=== PATIENT | male | born 1950 | race Caucasian/White ===

== ENCOUNTER → 2020-06-27 14:31 | Outpatient (BNVA) | payer MEDICARE, SELFPAY | PROVIDERS: Visit Provider Surgery | DX: Z20.822 Contact with and (suspected) exposure to COVID-19 (principal) | CPT/HCPCS: 87635 ==

== ENCOUNTER 2020-06-30 06:17 | Day surgery (SDC) | payer MEDICARE, SELFPAY ==
[2020-06-27 13:35] VITALS: BMI 37.6
[2020-06-30 06:44] VITALS: BP 154/77; PULSE 66; RESP 18; TEMP 36.2; O2SAT 94
[2020-06-30 06:45] LABS: Glucose Point of Care 125 mg/dL (70-110)
[2020-06-30] MEDS: sodium chloride 0.9% 1,000 ML 30 ML IV (06:45)
--- NOTE | 2020-06-30 06:59 | ECG_ITS ---
[facility] Test Date: 2020-06-30 Pat Name: Lang Rangel Department: Room: Gender: Male Director Of Critical Care: : 1950 Requested By: Jeanne Cho Order Number: [id number] Radha MD: Robert Castillo M.D. Measurements Intervals [place] Rate: 63 P: LA: QRS: -79 QRSD: 99 T: 90 QT: 433 QTc: 445 Interpretive Statements ATRIAL FIBRILLATION INDETERMINATE AXIS LEFT ANTERIOR FASCICULAR BLOCK [QRS AXIS <= -45, QR IN I, RS IN II] ANTEROLATERAL MYOCARDIAL INFARCTION [40+ ms Q WAVE IN I/aVL/V3-V6], OF INDETERMINATE AGE No previous ECG available for comparison Electronically Signed On 06-30-2020 16:15:40 CDT by Robert Castillo M.D. [email or web address] [place].[employer][id number]
--- NOTE | 2020-06-30 06:59 | ANES.PREANE2 ---
Pre-Anesthetic Assessment Pre-Anesthetic Assessment: Height/Weight: Height 1.75 m Weight 115.666 kg Temp Pulse Resp BP Pulse Ox 97.2 F L 66 18 154/77 94 06/30/20 06:44 06/30/20 06:44 06/30/20 06:44 06/30/20 06:44 06/30/20 06:44 Preop Diagnosis: Suspicious skin lesion, anemia, history of colon polyps Proposed Procedure: Operation Date: 06/30/20 08:00 Proposed Procedures p Excision of skin lesion on back 11399 02014 25889 D50.9 I98.9(Not Applicable) - Ronnell Fry MD s EGD(Not Applicable) - Ronnell Fry MD s Colonoscopy(Not Applicable) - Ronnell Fry MD Familial anesthetic complications: None Was Beta Isabela taken within 24 hours: N/A Was Clonidine taken within 24 hours: N/A Last intake: > 8hrs Social: Social History: No alcohol and No tobacco Exam: Pre-Anes Outpt Exam: alert, oriented x 3, clear to auscultation bilaterally and regular rate & rhythm Airway: Cervical ROM: WNL MP: 4 Dentition: False Pulmonary: Pulmonary: COPD CV/HEM: CV/HEM: Afib (no warfarin for 2 days), Anemia, CAD (multiple stents (all > 1 year ago)), HTN and [place] Hepatic: Comments: previous heavy drinker, no sequelae of alcohol abuse Metabolic: Metabolic: Hyperlipidemia Anesthetic Plan: ASA status: 4 Anesthesia: MAC Risk of > 500 ml blood loss (7ml/kg in children): No PFSH Anesthesia PFSH: Medical History (Updated 06/23/20 @ 09:33 by Ronnell Fry MD) Anemia Atrial fibrillation CAD (coronary artery disease) Colon polyps COPD (chronic obstructive pulmonary disease) Diabetes mellitus Hyperlipidemia Hypertension Myocardial infarct Surgical History (Updated 06/23/20 @ 09:04 by Ronnell Fry MD) History of appendectomy History of coronary artery stent placement Status post colonoscopy Family History (Updated 06/23/20 @ 08:54 by TENA Romo) Denies family history of Anesthesia complication Bleeding disorder Social History (Updated 06/23/20 @ 08:54 by TENA Romo) Smoking and tobacco status: never smoked Alcohol intake: never Data Anesthesia Other Labs: Laboratory Results - last 48 hr 06/30/20 06:43 POC Glucose 125 H Cardiac Studies: No Data to Display
--- NOTE | 2020-06-30 07:53 | W.PM.OPSUD ---
Surgery/Procedure H&P Update DATE OF PROCEDURE: June 30, 2020 DATE H&P PERFORMED: 06/23/20 H&P UPDATE INFORMATION: I have reviewed H&P completed within last 30 days, I have examined patient prior to procedure and No changes to prior documentation PREOP DIAGNOSIS: Suspicious skin lesion, anemia, history of colon polyps PLANNED PROCEDURE: Operation Date: 06/30/20 08:00 Proposed Procedures p Excision of skin lesion on back 49986 38437 75772 D50.9 I98.9(Not Applicable) - Ronnell Fry MD s EGD(Not Applicable) - Ronnell Fry MD s Colonoscopy(Not Applicable) - Ronnell Fry MD
[2020-06-30 09:04] LABS: INR 1.22 (0.8-1.2)
[2020-06-30 11:15] VITALS: BP 127/54; PULSE 68; RESP 18; TEMP 36.8; O2SAT 97
[2020-06-30 11:20] VITALS: BP 120/67; PULSE 69; RESP 19; O2SAT 94
[2020-06-30 11:25] VITALS: BP 116/71; PULSE 59; RESP 17; TEMP 36.5; O2SAT 95
[2020-06-30 11:31] LABS: Glucose Point of Care 120 mg/dL (70-110)
[2020-06-30 11:38] VITALS: BP 109/73; PULSE 64; RESP 18; TEMP 36.2; O2SAT 94
--- NOTE | 2020-06-30 11:51 | PM.OP ---
Operative Report Date of procedure: June 30, 2020 Pre-op Diagnosis: 1. Anemia 2. History of colon polyps 3. Suspicious skin lesion on the back Post-op Diagnosis: 1. Nonerosive gastritis 2. Diverticulosis 3. 9mm sessile polyp - descending colon 4. 5mm sessile polyp - Rectum 5. 2cm suspicious skin lesion back Procedure Done: 1. Esophagogastroduodenoscopy without biopsy 2. Colonoscopy with polypectomy using hot snare 3. Wide local excision of 2 cm suspicious skin lesion on the back 4. Intermediate closure of defect measuring 6 x 4 cm Specimens removed/disposition: 1. Rectal polyp 2. Descending colon polyp 3. Suspicious skin lesion on the back Surgeon: Ronnell Fry Anesthesia: MAC Condition: stable Disposition: PACU Procedure: The patient was taken to the operating room and placed in left lateral position under MAC after IV antibiotic had been administered. The area around the suspicious lesion on the back was prepped and draped in sterile manner. 1% lidocaine with 0.5% Marcaine was infiltrated on the suspicious skin lesion. A 6 x 4 cm longitudinal elliptical incision was made after 1 cm margin was obtained using 15 blade. The subcutaneous tissues were divided using electrocautery down to the fascia and the specimen was excised completely and sent to pathology in formalin with a short stitch placed superiorly. The defect measured 6 x 4 x 2 cm deep. Subcutaneous flaps were raised bilaterally and the subcutaneous tissue was closed in layers using interrupted 3-0 Vicryl sutures to close the defect. The skin was closed using running subcuticular 4-0 Monocryl suture and surgical glue. Pressure dressings were applied A gastroscope was introduced and advanced up to second portion of the duodenum and slowly withdrawn. Duodenum second portion: Normal Duodenal bulb: Normal Stomach Fundus: Normal body: Mild nonerosive gastritis Antrum: Normal Pylorus: Normal Esophagus GE junction: Normal at 40 cm Rest of esophagus: Normal A colonoscope was introduced and advanced up to the cecum and slowly withdrawn. The colon prep was fair. Cecum: Normal Ascending colon: Normal Transverse colon: Normal Descending colon: 9 mm sessile polyp removed piecemeal with hot snare Sigmoid colon: Mild diverticulosis Rectum:: 5 mm sessile polyp removed with a hot snare AMANDEEP:: Normal
--- NOTE | 2020-06-30 17:42 | ANE.PACU2 ---
Inpatient post-anesthesia follow up: Airway intact: Yes Vital signs: Temperature 97.2 F Pulse Rate 64 Respiratory Rate 18 Blood Pressure 109/73 Pulse Oximetry 94 Oxygen Delivery Me thod Room Air Oxygen Flow Rate Fraction of Inspir ed Oxygen Hydration adequate: Yes Nausea and vomiting: No Pain level: 1 Mental status: Baseline
== END 2020-06-30 12:00 | disposition home or self-care (01) ==
PROVIDERS: Visit Provider Surgery
PROC: (CPT 11602; principal; 2020-06-30 08:00)
PROC: 0DJ08ZZ Inspection of Upper Intestinal Tract, Via Natural or Artificial Opening Endoscopic (ICD-10-PCS; CPT 43235; 2020-06-30 08:00)
PROC: 0DJD8ZZ Inspection of Lower Intestinal Tract, Via Natural or Artificial Opening Endoscopic (ICD-10-PCS; CPT 45378; 2020-06-30 08:00)
DX: D64.9 Anemia, unspecified (principal); Z86.010 Personal history of colon polyps; C44.509 Unspecified malignant neoplasm of skin of other part of trunk; K29.70 Gastritis, unspecified, without bleeding; K57.30 Diverticulosis of large intestine without perforation or abscess without bleeding; D12.4 Benign neoplasm of descending colon; D12.8 Benign neoplasm of rectum; J44.9 Chronic obstructive pulmonary disease, unspecified; I48.91 Unspecified atrial fibrillation; Z79.01 Long term (current) use of anticoagulants; I25.10 Atherosclerotic heart disease of native coronary artery without angina pectoris; Z95.5 Presence of coronary angioplasty implant and graft; I10 Essential (primary) hypertension; I25.2 Old myocardial infarction; E78.5 Hyperlipidemia, unspecified; E11.9 Type 2 diabetes mellitus without complications
CPT/HCPCS: 11602; 12032; 43235; 45385; 36416; 82962; 85610; 88304; 88305; 93005; J0690; J2370; J2704; J3010; J3490; J7030

== ENCOUNTER → 2020-07-28 09:09 | Outpatient (BNVA) | payer MEDICARE, SELFPAY | PROVIDERS: Visit Provider Surgery | DX: D50.9 Iron deficiency anemia, unspecified (principal); Z20.822 Contact with and (suspected) exposure to COVID-19 | CPT/HCPCS: 87635 ==

== ENCOUNTER 2020-07-30 07:09 | Day surgery (SDC) | payer MEDICARE, SELFPAY ==
[2020-07-30] VITALS (8 sets, daily range): BP systolic 129–159; BP diastolic 64–86; PULSE 55–80; RESP 12–22; TEMP 36.1–36.7; O2SAT 91–97; BMI 32.5
[2020-07-30 08:02] LABS: Glucose Point of Care 133 mg/dL (70-110)
--- NOTE | 2020-07-30 08:10 | NM_ITS ---
WS: [id number] NUCLEAR MEDICINE SENTINEL LYMPH NODE IMAGING HISTORY: mass left upper torso, resection of melanoma mid back. COMPARISON: None available. TECHNIQUE: The patient was injected with 1.1 mCi of Technetium 99 ultra filtered sulfur colloid. Inje ction is intradermal surrounding the biopsy site along the mid back. Four aliquots are used. Skin is cleansed with ChloraPrep. Small amount of lidocaine is inserted in 4 aliquots around the scar site from the prior resection site. 4 aliquots of the radionuclide are injected intradermal. No comp lications. Patient is imaged immediately after injection. Approximately one half hours post injection the sentin el lymph node is identified in the RIGHT axilla. Using a source the lymph node is localized in the an terior and lateral projections. NC/NM lymphatics/lymph node [id number] IMPRESSION: Uncomplicated localization of a RIGHT axillary sentinel lymph node after inject ion around the resection site of the posterior back.
--- NOTE | 2020-07-30 08:38 | PC.NURSE ---
patient was injected around mass at [address] Burnett
--- NOTE | 2020-07-30 09:27 | P.HP_ITS ---
Same Day Surgery H&P Indication for Procedure/HPI DATE OF PROCEDURE: July 30, 2020 CHIEF COMPLAINT/INDICATIONFOR SURGICAL PROCEDURE: T3 melanoma requiring reexcision of margins and sentinel lymph node biopsy. Had extensive discussion with the patient about the indication, risks and benefits of surgery PREOP DIAGNOSIS: Melanoma PLANNED PROCEDRUE: Operation Date: 07/30/20 12:15 Proposed Procedures p Re excision of margins [id number] 60508 c43.9(Not Applicable) - Ronnell Fry MD s Sentinal Lymph Node Biopsy(Not Applicable) - Ronnell Fry MD Medications/Allergies* Home Medications Medication Instructions Recorded Confirmed Type albuterol sulfate 2 mg/5 mL oral 2 mg PO TID 06/23/20 07/30/20 History syrup aspirin 81 mg tablet,delayed 81 mg PO DAILY 06/23/20 07/30/20 History release atorvastatin 40 mg tablet 40 mg PO DAILY 06/23/20 07/30/20 History buspirone 5 mg tablet 5 mg PO BID 06/23/20 07/30/20 History carvedilol 12.5 mg tablet 12.5 mg PO BID 06/23/20 07/30/20 History furosemide 40 mg tablet 40 mg PO DAILY 06/23/20 07/30/20 History glipizide 10 mg tablet 10 mg PO DAILY 06/23/20 07/30/20 History insulin glargine U-300 conc 300 45 unit SUBCUT DAILY ml 06/23/20 07/30/20 History unit/mL (3 mL) subcutaneous pen lisinopril 10 mg tablet 10 mg PO DAILY 06/23/20 07/30/20 History metformin 500 mg tablet 500 mg PO DAILY 06/23/20 07/30/20 History mupirocin 2 % topical ointment 1 applic TOPICAL BID 06/23/20 07/30/20 History nitroglycerin 0.4 mg sublingual 0.4 mg SUBLINGUAL Q5M PRN 06/23/20 07/30/20 History tablet spironolactone 50 mg tablet 50 mg PO DAILY 06/23/20 07/30/20 History warfarin 5 mg tablet 5 mg PO DAILY 06/23/20 07/30/20 History Allergies/Adverse Reactions Allergy/AdvReac Type Severity Reaction Status Date / Time No Known Allergies Allergy Verified 07/30/20 07:44 Pertinent History/Comorbid Conditions* Medical History (Updated 07/16/20 @ 16:52 by Ronnell Fry MD) Anemia Atrial fibrillation CAD (coronary artery disease) Colon polyps COPD (chronic obstructive pulmonary disease) Diabetes mellitus Hyperlipidemia Hypertension Myocardial infarct Nodular melanoma Surgical History (Updated 06/30/20 @ 11:15 by Ronnell Fry MD) H/O esophagogastroduodenoscopy (06/30/20) Gastritis H/O local excision of skin lesion (06/30/20) Back History of appendectomy History of coronary artery stent placement Status post colonoscopy (06/30/20) Diverticulosis, colon polyp Family History (Updated 06/23/20 @ 08:54 by TENA Romo) Denies family history of Anesthesia complication Bleeding disorder Social History Smoking and tobacco status: never smoked Alcohol intake: never Pertinent Exam Findings alert, oriented x 3, regular rate & rhythm and operative site marked Recommendations Surgery/Procedure today Coding Level of Care Code Acute Director Of Reservations for Skye Pineda
[2020-07-30] MEDS: sodium chloride 0.9% 1,000 ML 30 ML IV (09:30)
--- NOTE | 2020-07-30 10:33 | SUR.PHASEI ---
patient returned from [place] [facility].
--- NOTE | 2020-07-30 11:10 | ANES.PREANE2 ---
Pre-Anesthetic Assessment Pre-Anesthetic Assessment: Height/Weight: Height 1.75 m Weight 99.79 kg Temp Pulse Resp BP Pulse Ox 97.3 F L 62 16 134/80 96 07/30/20 07:46 07/30/20 07:46 07/30/20 07:46 07/30/20 07:46 07/30/20 07:46 Preop Diagnosis: Melanoma Proposed Procedure: Operation Date: 07/30/20 12:15 Proposed Procedures p Re excision of margins [id number] 04892 02730 c43.9(Not Applicable) - Ronnell Fry MD s Sentinal Lymph Node Biopsy(Not Applicable) - Ronnell Fry MD Familial anesthetic complications: NOne Was Beta Isabela taken within 24 hours: N/A Was Clonidine taken within 24 hours: N/A Last intake: Intake Last Liquid Date 07/29/20 Last Liquid Time 23:00 Last Solid Date 07/29/20 Last Solid Time 23:00 Social: Social History: No alcohol and No tobacco Exam: Pre-Anes Outpt Exam: alert, oriented x 3, clear to auscultation bilaterally and regular rate & rhythm Airway: Cervical ROM: WNL MP: 4 Dentition: False Pulmonary: Pulmonary: COPD CV/HEM: CV/HEM: Afib, Anemia, CAD (stents > 1 year ago), HTN and [place] Metabolic: Metabolic: Hyperlipidemia Anesthetic Plan: ASA status: 3 Anesthesia: General Risk of > 500 ml blood loss (7ml/kg in children): No PFSH Anesthesia PFSH: Medical History Anemia Atrial fibrillation CAD (coronary artery disease) Colon polyps COPD (chronic obstructive pulmonary disease) Diabetes mellitus Hyperlipidemia Hypertension Myocardial infarct Nodular melanoma Surgical History H/O esophagogastroduodenoscopy (06/30/20) Gastritis H/O local excision of skin lesion (06/30/20) Back History of appendectomy History of coronary artery stent placement Status post colonoscopy (06/30/20) Diverticulosis, colon polyp Family History Denies family history of Anesthesia complication Bleeding disorder Social History Smoking and tobacco status: never smoked Alcohol intake: never Data Anesthesia Other Labs: Laboratory Results - last 48 hr 07/30/20 07:58 POC Glucose 133 H Cardiac Studies: No Data to Display
[2020-07-30] MEDS: isosulfan blue 10 mg/mL SDV 5mL SUBCUT (13:40)
[2020-07-30] MEDS: neomycin-poly-bacitracin oint 28 gm 1 APPLIC TOPICAL (13:52)
--- NOTE | 2020-07-30 15:48 | ANE.PACU2 ---
Inpatient post-anesthesia follow up: Airway intact: Yes Vital signs: Temperature 97.0 F Pulse Rate 77 Respiratory Rate 16 Blood Pressure 144/72 Pulse Oximetry 97 Oxygen Delivery Me thod Nasal Cannula Oxygen Flow Rate 2 Fraction of Inspir ed Oxygen Hydration adequate: Yes Nausea and vomiting: No Pain level: 2 Mental status: Baseline
[2020-07-30] MEDS: HYDROcodone-acetaminophen 5-325 mg Tablet 1 TAB PO (16:25)
--- NOTE | 2020-07-30 16:57 | PM.OP ---
Operative Report Date of procedure: July 30, 2020 Pre-op Diagnosis: T3 melanoma on the back status post excision Post-op diagnosis: same Procedure Done: Reexcision of margins on the back for T3 melanoma Intermediate closure of wound measuring 10 x 4 x 3 cm Injection of 3 cc of Lymphazurin Right axillary sentinel lymph node biopsy Specimens removed/disposition: Reexcision of margins on back, short stitch superior, long stitch left Right axillary sentinel lymph node Surgeon: Ronnell Fry Anesthesia: General Estimated blood loss (mL): 50 Condition: stable Disposition: PACU Procedure: The patient was taken to the operating room and intubated under general anesthesia and placed in left lateral position under MAC after IV antibiotic had been administered. The back and the right axilla which had been previously marked by the radiologist was prepped and draped in a sterile manner. A 1.5 cm cm margin was marked on the either edge of the previous surgical incision since patient already had 7 mm negative margins on prior specimen. An elliptical 10 cm long incision was made incorporating the prior scar using a 15 blade, subcutaneous tissues divided down to the fascia using electrocautery and the specimen was sent to pathology in formalin. A short stitch was placed superiorly and a long stitch was placed on the left margin.
--- NOTE | 2020-09-16 07:37 | PM.OP ---
Operative Report Date of procedure: 07/30/2020 Pre-op Diagnosis: T3 melanoma on the back status post excision Post-op diagnosis: same Procedure Done: Reexcision of margins on the back for T3 melanoma Intermediate closure of wound measuring 10 x 4 x 3 cm Injection of 3 cc of Lymphazurin Right axillary sentinel lymph node biopsy Specimens removed/disposition: Reexcision of margins on the back, short superior, long stitch left Right axillary lymph node Surgeon: Ronnell Fry Anesthesia: General Estimated blood loss (mL): 50 Condition: stable Disposition: PACU Procedure: The patient was taken to the operating room and intubated under general anesthesia and placed in left lateral position under MAC after IV antibiotic had been administered. The back and the right axilla which had been previously marked by the radiologist was prepped and draped in a sterile manner. A 1.5 cm margin was marked on the either edge of the previous surgical incision since patient already had 7 mm negative margins on prior specimen. An elliptical transverse 10 cm long incision was made incorporating the prior scar using a 15 blade, subcutaneous tissues divided down to the fascia using electrocautery and the specimen was dissected off the underlying muscular fascia. A short stitch was placed superiorly and a long stitch was placed on the left margin. The wound measured 10 x 4 x 3 cm. Using electrocautery, superior and inferior subcutaneous flaps were created, hemostasis ensured and the subcutaneous tissue was approximated using interrupted 3-0 Vicryl sutures in layers. The skin was closed using jes. A technetium sulfur colloid had been injected previously by the radiologist in the area around the prior surgical site. 5 mL of 1% Lymphazurin was injected in the area around the site of the melanoma and it was massaged for 5 minutes and a 2 cm incision was made in the right axilla at the edge of the hairline. The subcutaneous tissue and clavipectoral fascia was divided with electrocautery and gentle dissection revealed lymphatics with stained lymph nodes. Using electrocautery the lymph nodes were dissected free. The excised lymph nodes were radioactive, examination of the axilla with the gamma probe did not reveal any other lymph nodes. The clavipectoral and subcutaneous tissue was approximated using running 3-0 Vicryl suture and skin was closed using running subcuticular 4-0 Monocryl suture and Dermabond. The patient was extubated and transferred to recovery room in stable condition
== END 2020-07-30 16:35 | disposition home or self-care (01) ==
PROVIDERS: Visit Provider Surgery
PROC: (CPT 11606; principal; 2020-07-30 12:05)
PROC: (CPT 11606; 2020-07-30 12:05)
DX: C43.59 Malignant melanoma of other part of trunk (principal); J44.9 Chronic obstructive pulmonary disease, unspecified; I48.91 Unspecified atrial fibrillation; I25.10 Atherosclerotic heart disease of native coronary artery without angina pectoris; Z95.5 Presence of coronary angioplasty implant and graft; I10 Essential (primary) hypertension; I25.2 Old myocardial infarction; E78.5 Hyperlipidemia, unspecified; Z79.82 Long term (current) use of aspirin; Z79.84 Long term (current) use of oral hypoglycemic drugs; Z79.01 Long term (current) use of anticoagulants
CPT/HCPCS: 11606; 12037; 38500; 36416; 78195; 82962; 88304; 88305; A9541; J0690; J1100; J2250; J2405; J2704; J2710; J3010; J3490; J7030; Q9968

== ENCOUNTER 2020-09-11 09:48 | Outpatient (CLI) | payer MEDICARE, SELFPAY ==
--- NOTE | 2020-09-11 15:18 | ONC CON_ITS ---
Dr. Randall New Patient Note Patient: Lang Rangel Unit #: [id number]: 1950 Dicatated By: Peggy Randall M.D.Date of Visit: Sep 11, 2020 Onc MED New Patient/Consult Referring Physician: Dr. FARZANEH KOHLER M.D. History of Present Illness: Mr. Lang Rangel is a 70-year-old gentleman with a history of mid back skin lesion, as per patient skin lesion was removed many years ago but it recurred and this time evaluated by Dr. Kohler and underwent excision on June 30, 2020 and final pathology report showed 4.6 mm, malignant melanoma, superficial spreading type, invasive into deep reticular dermis, Vignesh level IV, with extensive surface ulceration, margins were inadequate around 6 to 7 mm therefore reexcision and sentinel lymph node biopsy was done on July 30, 2020 and final pathology report came back no residual melanoma identified e.g. clear margins and right axillary sentinel lymph node showed no evidence of malignancy. T4b, N0 M0 stage IIc. Patient tolerated procedure well. Past medical history significant for atrial fibrillation,, coronary artery disease, colon polyps, COPD, diabetes mellitus, hyperlipidemia, hypertension, history of anemia., EGD done on June 30, 2020 shows mild gastritis, colonoscopy done on June 30, 2020 showed diverticulosis, colon polyps. No history of smoking or alcohol use Patient denies any weight loss patient denies any night sweats denies any weight loss or fever chills, denies any new bony pains denies any headaches blurred vision or double vision. Past Medical History: Mr. Rangel's medical history consists of anemia, atrial fibrillation, chronic obstructive pulmonary disease, coronary artery disease, hyperlipidemia, hypertension, myocardial infarction, and type II diabetes. Past Surgical History: Mr. Rangel's surgical/procedural history consists of appendectomy, coronary artery stent placement, and excision of skin lesion on back in 2020. Medications: Aldactone 1 Tablet (of 50 mg) Oral daily, Aspirin 81 1 Tablet (of 81 mg) Tablet, chewable Oral daily, Atorvastatin Calcium 1 Tablet (of 40 mg) Oral daily, busPIRone HCl 1 Tablet (of 5 mg) Oral daily, Carvedilol 1 Tablet (of 12.5 mg) Oral b.i.d., Coumadin 1 Tablet (of 5 mg) Oral daily, Furosemide 1 Tablet (of 40 mg) Oral daily, Gabapentin 1 Capsule (of 300 mg) Oral b.i.d., glipiZIDE 1 Tablet (of 10 mg) Oral b.i.d., Lisinopril 1 Tablet (of 10 mg) Oral daily, metFORMIN HCl 2 Tablet (of 500 mg) Oral b.i.d., Vistaril 1 Tablet (of 25 mg) Capsule Oral daily Allergies: No Known Allergies. Social History: Mr. Rangel is . Mr. Rangel has never smoked. He has no history of drinking. Family History: Mr. Rangel's mother at age 93: myocardial infarction. Mr. Rangel's father at age 77: myocardial infarction. Mr. Rangel has 5 brothers: 5 . Mr. Rangel's first brother's myocardial infarction. Another brother's myocardial infarction. Another brother's myocardial infarction. Another brother's myocardial infarction. Another brother's myocardial infarction. He has 1 sister who is : cancer. Review Of Symptoms: Review of Systems is not available for this patient. Vital Signs: Performed on Sep 11, 2020 11:20: 0, 37.98 (HIGH), 2.30 sq.m, 69 in, 94 % (LOW), 57 /min (LOW), 18 /min, 116/59 mm(hg), 97.1 F (LOW), and 257.2 lbs (HIGH). Performance Status: 0 - Fully active, able to carry on all predisease activities without restrictions. (ECOG) Physical Examination: ENMT - No mouth sores, no thrush, no jaundice, And right axilla well-healed surgical scar from right axillary sentinel lymph node biopsy,, Respiratory - Lungs are clear to auscultation, Cardiovascular - Regular rate and rhythm of heart , Abdomen - Soft, bowel sounds present, Extremities - No visible edema. Lab/Imaging: Most recent lab results are not available for this patient. Impression: T4BN0, M0 stage IIc melanoma involving mid back underwent excision on June 30, 2020, subsequently reexcision and right axillary sentinel lymph node biopsy on July 30, 2020 which showed 4.6 mm, with extensive surface ulceration melanoma involving mid back. Diabetes A. fib Coronary artery disease/MT Hypertension/hyperlipidemia Colon polyps per colonoscopy done on June 30, 2020 COPD Plan: Discussed with patient regarding his disease status and pathology which confirmed malignant melanoma, superficial spreading type, with ulceration, 4.6 mm depth, involving mid back and right axillary sentinel lymph node showed no evidence of metastatic disease thus T4b, N0, stage IIc, as per NCCN guidelines observation or enrollment to clinical trials is suggested,, discussed with patient and his son in detail and patient is agreed to go to melanoma clinic at [place] for evaluation for clinical trial if available. At this point, we will refer him to paranormal clinic at [place] in [place] for evaluation for second opinion and evaluation for clinical trial if available and then patient return to clinic 1 week after his visit to [place] for further discussion. Signed By: Peggy Randall M.D. <<Signature on File>>
== END 2020-09-11 09:49 | disposition home or self-care (01) ==
LOC: ONCMED 09:55
PROVIDERS: PCP Physician Assistant Medical; Visit Provider Internal Medicine Hematology & Oncology
DX: C43.59 Malignant melanoma of other part of trunk (principal); C77.3 Secondary and unspecified malignant neoplasm of axilla and upper limb lymph nodes; E11.59 Type 2 diabetes mellitus with other circulatory complications; I25.10 Atherosclerotic heart disease of native coronary artery without angina pectoris; I25.2 Old myocardial infarction; I48.91 Unspecified atrial fibrillation; I10 Essential (primary) hypertension; E78.5 Hyperlipidemia, unspecified; J44.9 Chronic obstructive pulmonary disease, unspecified; Z86.010 Personal history of colon polyps; Z79.899 Other long term (current) drug therapy
CPT/HCPCS: 99204

== ENCOUNTER 2022-07-19 11:53 | Outpatient (CLI) | payer MEDICARE, SELFPAY ==
--- NOTE | 2022-07-19 12:03 | USCV_ITS ---
Lang Rangel Age: 72 Gender: M : 1950 Exam Date: 07/19/2022 12:09 Ordering Phys: Ang Joy Technologist: Patrice Blue [place] [facility] [place]: chronic congestive heart failure BP: / HR: 119 Rhythm: Sinus Technical Quality: Poor MEASUREMENTS (Male / Female) Normal Values 2D ECHO LV Diastolic Diameter PLAX 3.7 cm 4.2 - 5.9 / 3.9 - 5.3 cm LV Systolic Diameter PLAX 2.7 cm IVS Diastolic Thickness 1.3 cm 0.6 - 1.0 / 0.6 - 0.9 cm IVS Systolic Thickness 1.6 cm LVPW Diastolic Thickness 1.4 cm 0.6 - 1.0 / 0.6 - 0.9 cm LVPW Systolic Thickness 1.4 cm LVOT Diameter 2.0 cm LV Ejection Fraction 2D Teich 52.3 % LV Ejection Fraction MOD 2C 63.2 % LV Ejection Fraction 2C AL 63.7 % LA Diameter 5.0 cm M-MODE Aortic Annulus Diameter 3.2 cm LA Ao Ratio MM 1.6 MV E Point Septal Separation 1.4 cm DOPPLER AV Peak Velocity 172.0 cm/s TR Peak Velocity 231.3 cm/s TR Peak Gradient 21.4 mmHg TV Peak E Velocity 92.0 cm/s Right Atrial Pressure 3.0 mmHg Pulmonary Artery Systolic Pressu 24.4 mmHg RV Acceleration Time 0.2 s FINDINGS Left Ventricle The examination is technically very poor for interpretation. Echo contrast was utilized in the form of opisond, which did not provide much benefit. The ventricle is probably normal in size and function. In one view there may be a slight amount of hypokinesis in the inferior posterior wall however this is not corroborated by other views. The overall ejection fraction is likely within normal range. Diastolic function could not be determined. Right Ventricle Normal right ventricular size and systolic function. Normal right ventricular systolic pressure. Right Atrium Right atrium not well visualized. Left Atrium Left atrium not well visualized. Mitral Valve Mitral valve not well visualized. There is mitral regurgitation to at least a moderate degree. In some views it appears severe. Aortic Valve Aortic valve not well visualized. No obvious aortic stenosis. There is trace aortic insufficiency. Tricuspid Valve Tricuspid valve not well visualized. Pulmonic Valve Pulmonic valve not well visualized. Pericardium Normal pericardium without effusion. Aorta Normal ascending aorta dimension. IVC Inferior vena cava not visualized. CONCLUSIONS The examination is technically very poor for interpretation. Echo contrast was utilized in the form of opisond, which did not provide much benefit. The ventricle is probably normal in size and function. In one view there may be a slight amount of hypokinesis in the inferior posterior wall however this is not corroborated by other views. The overall ejection fraction is likely within normal range. Diastolic function could not be determined. Mitral valve not well visualized. There is mitral regurgitation to at least a moderate degree. In some views it appears severe. Aortic valve not well visualized. No obvious aortic stenosis. There is trace aortic insufficiency. There are no prior echocardiogram studies to compare. Dr. Joe Escobar MD (Electronically Signed) Final Date: 20 July 2022 07:51 S
[2022-07-19] MEDS: perflutren protein-a microsphr 0.22 mg/mL SDV 3 mL IV (12:59)
== END 2022-07-19 11:54 | disposition home or self-care (01) ==
LOC: RAD 11:58
PROVIDERS: PCP Family Medicine; Visit Provider Family Medicine
DX: I50.9 Heart failure, unspecified (principal); I25.118 Atherosclerotic heart disease of native coronary artery with other forms of angina pectoris; R06.09 Other forms of dyspnea; I48.91 Unspecified atrial fibrillation; I34.0 Nonrheumatic mitral (valve) insufficiency
CPT/HCPCS: C8929; Q9956

== ENCOUNTER → 2022-08-09 16:31 | Outpatient (BNVA) | payer MEDICARE, SELFPAY | PROVIDERS: PCP Family Medicine; Visit Provider Internal Medicine Cardiovascular Disease | DX: E11.9 Type 2 diabetes mellitus without complications (principal); N18.9 Chronic kidney disease, unspecified; Z79.01 Long term (current) use of anticoagulants; R06.02 Shortness of breath; I25.10 Atherosclerotic heart disease of native coronary artery without angina pectoris; M79.605 Pain in left leg; M79.604 Pain in right leg; M79.89 Other specified soft tissue disorders; I10 Essential (primary) hypertension; I48.91 Unspecified atrial fibrillation | CPT/HCPCS: 36415; 80048; 83880; 84443; 85025; 93005; 99205 ==

== ENCOUNTER 2022-08-24 14:19 | Outpatient (CLI) | payer MEDICARE, SELFPAY ==
--- NOTE | 2022-08-24 14:30 | USCV_ITS ---
Lang Rangel Age: 72 Gender: M : 1950 Exam Date: 08/24/2022 14:36 Ordering Phys: Santos Rosenbaum MD ([email or web address]) Technologist: CT [place] [facility] [place]: claudication Risk Factors: Previous Vascular Surgery: RIGHT LEFT BP: 80.00 / 47.00 BP: 78.00/ 45.00 Waveform Velocity (cm/s) Velocity (cm/s) Waveform Triphasic 98.5 Iliac Prox 107.0 Triphasic Triphasic 82.4 Iliac Mid 90.5 Triphasic Triphasic 76.1 Iliac Distal 92.6 Triphasic Triphasic 105.7 MORTGAGE CLOSING CLERK 104.0 Triphasic Triphasic 93.1 SFA Prox 95.7 Triphasic Triphasic 86.0 SFA Mid 96.1 Triphasic Triphasic 77.9 SFA Dist 96.1 Triphasic Triphasic 62.7 POP 73.0 Triphasic Monophasic 23.3 DIAGNOSTIC TECHNOLOGIST 0.0 N/A Monophasic 25.0 DPA 36.8 Monophasic 0.7 SRAVANI 0.6 FINDINGS Resting SRAVANI 0.7 on the right side and 0.6 on the left side. Monophasic and low velocity Doppler waveforms in the infrapopliteal vessels on the right side No Doppler flow signals in the left posterior tibial artery Monophasic waveform in the dorsalis pedis artery on the left side CONCLUSIONS 1. Abnormal resting ABIs bilaterally suggesting moderate peripheral artery disease, mostly involving the infrapopliteal vessels. 2. Features of total occlusion of the posterior artery on the left side No similar previous studies are available for comparison Dr Santos Rosenbaum MD [facility] (Electronically Signed) Final Date: 25 August 2022 20:39 S
== END 2022-08-24 14:20 | disposition home or self-care (01) ==
PROVIDERS: PCP Family Medicine; Visit Provider Internal Medicine Cardiovascular Disease
DX: I73.9 Peripheral vascular disease, unspecified (principal); R93.6 Abnormal findings on diagnostic imaging of limbs
CPT/HCPCS: 93925

== ENCOUNTER → 2022-09-08 11:07 | Outpatient (BNVA) | payer MEDICARE, SELFPAY | PROVIDERS: PCP Family Medicine; Visit Provider Internal Medicine Cardiovascular Disease | DX: I77.9 Disorder of arteries and arterioles, unspecified (principal); I10 Essential (primary) hypertension; I48.91 Unspecified atrial fibrillation; E11.9 Type 2 diabetes mellitus without complications; I25.10 Atherosclerotic heart disease of native coronary artery without angina pectoris; R06.02 Shortness of breath; M79.89 Other specified soft tissue disorders; Z79.4 Long term (current) use of insulin | CPT/HCPCS: 80048; 83880; 99214 ==

== ENCOUNTER → 2022-09-15 12:35 | Outpatient (BNVA) | payer MEDICARE, SELFPAY | PROVIDERS: PCP Family Medicine; Visit Provider Internal Medicine Cardiovascular Disease | DX: I77.9 Disorder of arteries and arterioles, unspecified (principal); I10 Essential (primary) hypertension; I48.91 Unspecified atrial fibrillation; E11.9 Type 2 diabetes mellitus without complications; M79.89 Other specified soft tissue disorders; M79.605 Pain in left leg; R06.02 Shortness of breath; I25.10 Atherosclerotic heart disease of native coronary artery without angina pectoris; Z79.01 Long term (current) use of anticoagulants; D64.9 Anemia, unspecified; Z79.84 Long term (current) use of oral hypoglycemic drugs | CPT/HCPCS: 99215 ==

== ENCOUNTER 2022-10-07 06:41 | Outpatient (CLI) | payer MEDICARE, SELFPAY ==
[2022-10-07 06:46] VITALS: BMI 36.7
--- NOTE | 2022-10-07 06:48 | ECG_ITS ---
[facility] Test Date: 2022-10-07 Pat Name: Lang Rangel Department: Room: Gender: Male College Service Officer: : 1950 Requested By: Santos Rosenbaum Order Number: [id number] Radha MD: Santos Rosenbaum M.D. Interpretive Statements NAME OF STUDY: LEXISCAN SESTAMIBI STRESS TEST INDICATION: ASHD; SOB PROCEDURE: At the baseline, the EKG revealed atrial fibrillation with a slow ventricular response rate of 49 bpm. Features of old anteroseptal wall myocardial infarction. Nonspecific T wave changes. The baseline heart was 49 bpm with a blood pressue of 92/54 mm of Hg Lexiscan was infused over a period of 20 seconds. A total of 0.4 milligrams of Lexiscan was infused. The stress phase was continued for a total of 5 minutes. Heart rate at the end of the stress phase was 46 bpm with a blood pressure 81/44 mm of Hg. The EKG at the peak infusion revealed no significant changes. Sestamibi was injected 20 seconds after the Lexiscan infusion. Heart rate at the end of the recovery phase was 50 bpm with a blood pressure of 111/43 mm of Hg. CONCLUSION: 1. No significant EKG changes with the LexiScan infusion 2. No LexiScan induced chest pain or cardiac arrhythmia 3. Normal blood pressure and heart rate response 4. Sestamibi/sestamibi perfusion scan pending; see separate report. Electronically Signed On 10-12-2022 9:35:09 CDT by Santos Rosenbaum M.D. [id number]
--- NOTE | 2022-10-07 06:49 | NMCV_ITS ---
NM kenya perf SPECT r/s* [id number] Lang Rangel Age: 72 Gender: M : 1950 Exam Date: 10/07/2022 07:52 Ordering Phys: Santos Rosenbaum MD ([email or web address]) Technologist: IRA Adams Exam Location: [facility] Indications: CORONARY ANGIOPLASTY STATUS STRESS TEST Please [facility] for [facility] IMAGE PROTOCOL Rest/Stress 1 Lexiscan Day Radiopharmaceutical Dose (mCi) Administration Site Administered by Rest: Tc-99m 10.9 IV IRA Fonseca Sestamibi Stress:Tc-99m 32.8 IV IRA Adams Sestamisaba Rest: 07-Oct-2022 60 Discovery 630 Stress: 07-Oct-2022 30 Discovery 630 0.4mg Lexiscan. Supine position only as patient was unable to lay prone. SPECT RESULTS Technical Quality: Excellent Raw Data Analysis: Normal Image Corrections: No attenuation or motion correction applied Summed Stress Score: 34 Summed Rest Score: 34 Summed Difference Score: 1 PERFUSION FINDINGS A large area of moderate to severely decreased tracer uptake, involving the inferior, inferolateral, anterior, anterolateral and all the apical segments. Subtle areas of reversibility was noted in the inferior region. Increased tracer uptake was noted in the right ventricular free wall FUNCTIONAL RESULTS (calculated via Gated SPECT) Stress Image LV EF (%): 58 Stress EDV (mL):208 TID: 1.14 Stress ESV (mL):87 FUNCTIONAL FINDINGS: Segmental wall motion analysis revealed mild diffuse hypokinesia of the LV apex IMPRESSIONS 1. Myocardial perfusion imaging revealing a large area of moderate to severely decreased persistent tracer uptake involving the inferior, inferolateral, anterolateral, anterior and apical regions with subtle areas of reversibility suggesting extensive myocardial scarring involving the distribution of all the 3 coronary arteries with very small areas of jennifer-infarction ischemia. 2. Normal LV ejection fraction of 58%. 3. Wall motion abnormalities as mentioned above 4. Mildly dilated LV cavity with end-systolic volume of 87 ml. 5. Features of right ventricular hypertrophy No similar previous studies are available for comparison Dr Santos Rosenbaum MD FAC (Electronically Signed) Final Date: 12 October 2022 08:28 S
[2022-10-07] MEDS: regadenoson 0.4 Mg/5 ml Syringe IVP (08:52)
[2022-10-07 09:18] VITALS: BP 111/43; PULSE 55
== END 2022-10-07 06:42 | disposition home or self-care (01) ==
PROVIDERS: PCP Family Medicine; Visit Provider Internal Medicine Cardiovascular Disease
DX: I25.10 Atherosclerotic heart disease of native coronary artery without angina pectoris (principal); R06.02 Shortness of breath
CPT/HCPCS: 36415; 78452; 93017; 96374; A9500; J2785

== ENCOUNTER → 2022-11-11 12:55 | Outpatient (BNVA) | payer MEDICARE, SELFPAY | PROVIDERS: PCP Family Medicine; Visit Provider Internal Medicine Cardiovascular Disease | DX: R94.39 Abnormal result of other cardiovascular function study (principal); I77.9 Disorder of arteries and arterioles, unspecified; I10 Essential (primary) hypertension; I48.91 Unspecified atrial fibrillation; M79.89 Other specified soft tissue disorders; R06.02 Shortness of breath; M79.605 Pain in left leg; I25.10 Atherosclerotic heart disease of native coronary artery without angina pectoris; I25.2 Old myocardial infarction; Z79.01 Long term (current) use of anticoagulants; D64.9 Anemia, unspecified | CPT/HCPCS: 99215 ==

== ENCOUNTER → 2022-11-18 08:23 | Outpatient (BNVA) | payer MEDICARE, SELFPAY | PROVIDERS: PCP Family Medicine; Visit Provider Internal Medicine Cardiovascular Disease | DX: R94.39 Abnormal result of other cardiovascular function study (principal); Z79.01 Long term (current) use of anticoagulants | CPT/HCPCS: 80048; 85025; 85610 ==

== ENCOUNTER 2022-12-22 07:21 | Outpatient (CLI) | payer MEDICARE, SELFPAY ==
[2022-12-22] VITALS (16 sets, daily range): BP systolic 95–122; BP diastolic 41–69; PULSE 41–72; RESP 12–18; TEMP 36.6; O2SAT 90–96; BMI 37.3
--- NOTE | 2022-12-22 07:30 | XACV_ITS ---
Exam Room: 2 Ht: 175 cm Wt: 115 kg BSA: 2.41 m2 Gender: Male : 1950 Any Known Allergies: No known allergies Exam Priority: Routine Procedure(s): Procedure Description: Diagnostic procedure Procedure Description: Left Heart Catheterization Procedure Description: Left ventriculography Procedure Description: Coronary Angiography Luz CHAPMAN; Diagnostic Cath Status: Elective Diagnostic Findings * Patient has multiple previously placed stents in all 3 vessels. There has also been prior myocardial infarctions and known left ventricular dysfunction. * Coronary angiography reveals a right dominant system. The left main coronary artery is normal. The circumflex is basically 1 long vessel which ends distally as a marginal branch. There are stents placed from the proximal vessel through the mid vessel. In the beginning at the proximal end there is a significant greater than 90% in-stent restenosis. In the middle of the stents there is a 60 to 70% in-stent restenosis. The LAD has stents from the proximal portion through the midportion of the vessel. There is significant length of the in-stent restenosis greater than 90% in the mid vessel within the stents. The right coronary artery has also been stented. There are stents from the proximal portion all the way past the acute margin toward the distal vessel. There is in-stent restenosis past the acute margin which is diffuse and lengthy in nature. Portions of this are up to 99% stenosed. There is also a posterior descending artery which is occluded. There is a stent in the proximal portion of this vessel. There is a trickle of flow into this artery.. Conclusions 1. Three-vessel coronary artery disease, all in-stent restenosis. Moderate to severe left ventricular dysfunction. At least 2+ mitral regurgitation. Recommendations * CABG versus medical therapy. I do not think he is a candidate for intervention given all of the lesions are in-stent restenosis and placing more stents in these vessels will only promote more restenosis. His risk of surgery is higher than usual given his left ventricular dysfunction. I carefully explained this to the patient, his son and daughter. They will consider a surgical referral. Interventional RX Recommendation: CABG Diagnostic RX Recommendation: CABG Anticoagulation: Heparin Ventriculography Ejection Fraction: 30.0 % Left Ventriculography Findings: * There is at least 2+ mitral regurgitation. The inferior base is akinetic. There is mild to moderate hypokinesis of the mid inferior wall. The anterior base is normal. There is mild to moderate hypokinesis of the mid anterior wall and apex. The very tip of the apex is dyskinetic. The ventricle is dilated. Pressures Phase:Rest AO : 78 / 44 ( 57 ) @ 9:10:00 AM 69 / 47 ( 57 ) @ 9:14:00 AM 104 / 59 ( 77 ) @ 9:23:00 AM 106 / 49 ( 74 ) @ 9:23:00 AM LV : 112 / 10 / 20 @ 9:20:00 AM 108 / 13 / 24 @ 9:23:00 AM 108 / 15 / 26 @ 9:23:00 AM Valves Phase:DefaultPhase AV : 4.0 @ 9:33:09 AM AV Mean Gradient: 8.0 @ 9:33:09 AM Clinical Evaluation EBL: 5mL-10mL Procedural Details Pre-Procedure Time Out. Identified patient by full name and date of as verbalized by the patient/guarantor. Does the consent match the physician's order: Yes. Accurate & Complete Informed Consent: Yes. Inpatient/Outpatient History & Physical on Chart: Yes. If H&P is completed, is and addenduem needed: No; If yes, is the addendum complete: N/A. Visualize and Verify Site with Patient/Guarantor: N/A. Relevant Radiology Images available: Yes. Pre-op teaching completed and patient verbalized understanding. The risks, benefits, and alternatives of sedation and/or procedure were discussed by physician. The patient agrees to continue. Procedure started. Physician arrived. Current Diagnosis : Chest Pain. [facility] Clinical Fraility Score: 4: Vulnerable. Glove Stitcher Indications: Worsening Angina. Glove Stitcher Indications: Other. Chest Pain Symptom Assessment: Non-anginal Chest Pain. Correct patient, site and procedure confirmed by cath team. Current diagnosis: Chest Pain. PERRLA. Strong, equal hand steward/stewardess deck bilaterally. Lungs clear x 5 lobes. IV Site on Arrival: 20 gauge in the right anticubital. IV Fluids: 0.9% NaCl at KVO. 0 mL infused prior to mechanical laboratory technician. Pre Procedural Pulses: bilateral dorsalis pedis was 1+. Pre Procedural Pulses: bilateral posterior tibial was 2+. Pre Procedural Pulses: bilateral radial was 2+. Oxygen started at 2liters/min via nasal canula. right groin was prepped with chloroprep then draped in the usual sterile fashion. right radial was prepped with chloroprep then draped in the usual sterile fashion. Baseline sample Acquired. HR: 52 BPM. Physician scrubbed in. Immediate Pre-Procedure Time Out. Correct Patient: Yes; Correct Procedure: Yes; Correct Site: Yes; Correct Patient Position: Yes; Correct Supplies: Yes; Dried Flammable Prep: Yes; Blood Products Available: N/A;. Lidocaine 1% infiltrated to the right radial. Arterial access obtained. A 5 djiboutian TIG catheter in over wire. Multiple views taken of left coronary artery. Catheter redirected to the RCA. Multiple views taken of right coronary artery. Catheter removed over the exchange wire. EDP Sample taken: LV 112/10,20; HR: 52 BPM; SpO2: 96%. LV gram performed in CHAN @ 10 mL/second for a total of 30 mL. EDP Sample taken: LV 108/13,24; HR: 61 BPM; SpO2: 96%. Patient EF: Abnormal. Pullback taken: LV 108/15,26; AO 104/59(77); Mean: 8mmHg, Peak to Peak: 4mmHg, SEP: 7sec/min; HR: 62 BPM; SpO2: 96%. Catheter removed over the exchange wire. A TR Band was successful obtaining hemostatsis at the Right Radial artery insertion site. Post Procedure: Pulses reassessed and unchanged. PERRLA. Strong, equal hand steward/stewardess deck bilaterally. No VTE prophylaxis required. Medication's Wasted: Lidocaine 1% = 2 mL. Medication's Wasted: Nitro = 49.8 mcg. Medication's Wasted: Other = Fentanyl 50mcg Versed 1 mg. Total IV fluids: 45 mL. Post-op diagnosis: CAD. Complications: None. Estimated blood loss: 5mL-10mL. Responsiveness - Normal response to verbal stimuli; alert and oriented, PERRLA. Airway - Unaffected, no intervention required; spontaneous ventilation. Circulation: W/N/L, pulses unchanged. Nausea/Vomiting: No. Procedure completed. Vital chart was stopped. Patient transferred by stretcher to CPRU. Access Site Site: Right Radial artery Sheath Size: 6 Fr Hemostasis Method: TR Band Hemostasis Success: Successful Procedure Medications Start: 8:49 AM Stop: 8:49 AM Medication: Versed 1 mg and Fentanyl 25 mcg Amount: 1 Route: I.V. Start: 9:08 AM Stop: 9:08 AM Medication: Fentanyl Amount: 25 mcg Route: I.V. Start: 9:09 AM Stop: 9:09 AM Medication: Nitrogylcerin Amount: 200 mcg Route: I.A. Start: 9:10 AM Stop: 9:10 AM Medication: Heparin Amount: 5000 units Route: I.V. I, the attending physician, have reviewed and verified all procedure medications. Yes, all medications given per verbal order History/Risk Factors Hypertension: Yes Dyslipidemia: Yes Peripheral Arterial Disease (PAD): Yes Myocardial Infarction (PR): Yes Obesity: No Renal Disease: No Prior Interventions PCI: Yes CABG: No Valve Surgery: No Report Signatures Finalized by Dr. Joe Escobar MD on 12/22/2022 09:58 AM
[2022-12-22] MEDS: aspirin 325 mg Tablet PO (07:45)
[2022-12-22] MEDS: diphenhydrAMINE 50 mg Capsule PO (07:45)
[2022-12-22 08:00] LABS: Basophils # 0.1 10^3/uL (0.0-0.1); Basophils % 0.8 %; Eosinophils # 0.4 10^3/uL (0.0-0.8); Eosinophils % 3.7 %; Hematocrit 38.8 % (37-53); Lymphocytes # 1.7 10^3/uL (0.8-4.8); Lymphocytes % 15.1 %; Mean Corpuscular HGB Conc 32.2 g/dL (30-55); Mean Corpuscular Hemoglobin 29.3 pg (27-33); Mean Corpuscular Volume 91.1 fl (82-101); Mean Platelet Volume 10.5 fL (7.4-10.4); Monocytes # 1.3 10^3/uL (0.2-0.9); Monocytes % 11.6 %; Neutrophils # 7.47 10^3/uL (1.8-7.7); Neutrophils % 68.3 %; Nucleated Red Blood Cells % 0 %; Platelet Count 271 10^3/cmm (157-399); Red Blood Count 4.26 10^6/uL (3.85-5.65); Red Cell Distribution Width 15.7 % (12.1-15.1); White Blood Count 10.94 10^3/uL (3.29-11.43)
[2022-12-22 08:13] LABS: Anion Gap 16.1 (5-19); Blood Urea Nitrogen 31 mg/dL (8-23); Calcium 9.5 mg/dL (8.5-10.5); Carbon Dioxide 29 mmol/L (22-29); Chloride 92 mmol/L (98-107); Glucose 81 mg/dL (65-115); Osmolality Calculated 282 mOsm/kg (285-295); Potassium 4.1 mmol/L (3.5-5.1); Sodium 133 mmol/L (136-145)
--- NOTE | 2022-12-22 08:38 | PM.HP ---
Providers/Chief Complaint Admitting Physician: jose Primary Care Provider: Ang Joy Chief Complaint: R94.39 History of Present Illness Lang Rangel is a 72 year old male who is here for an elective cardiac catheterization. He was seen sometime ago by Dr. Rosenbaum in consultation but because of request from his son and daughter to move appointments up more quickly he was put in the office with me. He has multiple complaints including difficulty with vision, shortness of breath, lower extremity edema, inability to sleep. He likes to stay up all night and watch TV and play on the computer. He takes catnaps during the day. Dr. Rosenbaum ordered a multitude of tests. His children have been very aggressive wanting more done and more testing performed. He carries a diagnosis of multiple myocardial infarctions, atrial fibrillation, multiple stents, dyslipidemia, COPD and hypertension. I saw him in October when they insisted that he be seen sooner than Dr. Rosenbaum could see him. The stress test had not returned yet. I saw him on the of last month and he was continuing to have multiple complaints. The sestamibi examination returned revealing extensive scar tissue in the distribution of all 3 vessels with a very small amount of jennifer-infarct ischemia. He also has a suggestion of peripheral arterial disease with a lower extremity duplex showing moderate disease in the trifurcation vessels below the knees. His daughter wants angiography of his legs done as well. After an extraordinarily long discussion in the office on the of last month we settled on performing angiography of his heart first. That is what the plan will be today. He states he has held his warfarin for 4 days. Review of Systems Narrative: The review of systems is positive in multiple distributions. Medications/Allergies Home Medications Medication Instructions Recorded Confirmed Last Taken Type atorvastatin 40 mg tablet 40 mg PO DAILY 06/23/20 12/22/22 12/21/22 20:00 History buspirone 5 mg tablet 5 mg PO BID 06/23/20 12/22/22 12/21/22 20:00 History carvedilol 12.5 mg tablet 12.5 mg PO BID 06/23/20 12/22/22 12/21/22 20:00 History mupirocin 2 % topical ointment 1 applic topical BID 06/23/20 11/11/22 07/28/20 History nitroglycerin 0.4 mg sublingual 0.4 mg sublingual Q5M PRN Chest 06/23/20 12/22/22 Unknown History tablet Pain warfarin 5 mg tablet 5 mg PO DAILY 06/23/20 12/22/22 12/16/22 History gabapentin 300 mg capsule 300 mg PO TID 08/09/22 12/22/22 12/21/22 08:00 History hydroxyzine HCl 25 mg tablet 25 mg PO ONCE 08/09/22 11/11/22 Unknown History insulin glargine U-300 conc 300 55 unit SUBCUT DAILY 09/08/22 11/11/22 Unknown History unit/mL (3 mL) subcutaneous pen (Toujeo Max U-300 SoloStar) furosemide 40 mg tablet 40 mg PO BID 09/15/22 12/22/22 12/21/22 08:00 History metformin 500 mg tablet 1,000 mg PO BID 09/15/22 12/22/22 12/21/22 08:00 History lisinopril 10 mg tablet 5 mg PO DAILY 11/11/22 12/22/22 12/21/22 08:00 History Allergies Allergy/AdvReac Type Severity Reaction Status Date / Time No Known Allergies Allergy Verified 11/11/22 13:08 PFSH Acute PFSH: Medical History (Updated 11/11/22 @ 13:45 by Joe Escobar MD) Abnormal stress electrocardiogram test Anemia Atrial fibrillation CAD (coronary artery disease) 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, 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 Breslow thickness, Vignesh level IV Colon polyps COPD (chronic obstructive pulmonary disease) Diabetes mellitus History of malignant melanoma Hyperlipidemia Hypertension Myocardial infarct Surgical History H/O esophagogastroduodenoscopy (06/30/20) Gastritis H/O local excision of skin lesion (06/30/20) Back History of appendectomy History of coronary artery stent placement Status post colonoscopy (06/30/20) Diverticulosis, colon polyp Family History Denies family history of Anesthesia complication Bleeding disorder Social History Alcohol intake: never Vitals/I&O/Wt Last Vital Signs Temp 97.8 F 12/22/22 07:59 Pulse 55 L 12/22/22 07:59 Resp 14 12/22/22 07:59 BP 109/52 12/22/22 07:59 O2 Del Method Room Air 12/22/22 07:58 Weight last 48 hrs Weight 253 lb Physical Exam Narrative: GENERAL: In general he looks and feels well HEENT: Exam within normal limits. NECK: Supple without jugular vein distention. The carotid upstroke is normal without bruits. BACK: Exam normal. LUNGS: Clear. HEART: Regular rate and rhythm. ABDOMEN: Benign without organomegaly or tenderness. EXTREMITIES: No edema. NEUROLOGIC: Exam normal. SKIN: Unremarkable. Data 12/22/22 07:40 12/22/22 07:40 A&P Assessment and plan (1) Abnormal stress electrocardiogram test: (2) Peripheral arterial occlusive disease: (3) Hypertension: (4) Atrial fibrillation: (5) Diabetes mellitus: (6) Atherosclerosis of coronary artery of [place] heart without angina pectoris: (7) History of malignant melanoma: (8) Chronic anticoagulation: (9) Anemia: Plan Coronary angiography today. I spoke to the patient again today. He signed the consent form in my presence. I also had another lengthy conversation with both of his children regarding the testing. Attestations Medical Necessity Statement*: Outpatient cardiac catheterization and Moderate Time for a total of 35 minutes, includes reviewing past or interval history, examining/interviewing patient, placing orders, counseling patient/family/other support, updating patient/family/other support, discussing plan of care with staff, documenting encounter and coordinating care Diagnoses Abnormal stress electrocardiogram test R94.39 Peripheral arterial occlusive disease I77.9 Hypertension I10 Atrial fibrillation I48.91 Diabetes mellitus E11.9 Atherosclerosis of coronary artery of [place] heart without angina pectoris I25.10 History of malignant melanoma Z85.820 Chronic anticoagulation Z79.01 Anemia D64.9
--- NOTE | 2022-12-22 11:47 | P.DS_ITS ---
Discharge Providers Date of Admission: December 22, 2022 Date of Discharge: December 22, 2022 Attending Provider at Admission: Luz Attending Provider at Discharge: Joe Escobar MD Primary Care Provider: Ang Joy Diagnoses at Discharge Discharge Diagnosis (1) Abnormal stress electrocardiogram test: Status: Acute (2) Peripheral arterial occlusive disease: Status: Acute (3) Hypertension: Status: Acute (4) Atrial fibrillation: Status: Acute (5) Diabetes mellitus: Status: Acute (6) Atherosclerosis of coronary artery of [place] heart without angina pectoris: Status: Acute (7) History of malignant melanoma: Status: Acute (8) Chronic anticoagulation: Status: Acute (9) Anemia: Status: Acute Reason for Visit Reason for Visit: R94.39 Brief History: Patient has been seen in the office several times. Echocardiography was a poor quality study. Stress testing was fairly dramatically abnormal in all 3 distributions. He was recommended for coronary angiography and was brought in electively for that today. Hospital Course Hospital Course Patient has stents in all 3 vessels from the proximal portion to the midportion in the LAD and circumflex in the proximal portion to beyond the acute margin and distally in the right coronary artery. All 3 vessels reveal in-stent restenosis with severe three-vessel disease. There is also rather severe left ventricular dysfunction with an ejection fraction of about 30% and multiple wall motion disturbances. There is dyskinesis of the very apex and akinesis of the inferior base. Otherwise there is moderate hypokinesis. The ventricle is also dilated. There is no option for intervention given the multiple lesions and all in-stent restenosis. He will be a moderate risk for surgery but that is the only choice for therapy of his coronary artery disease. His 2 children are considering this as is the patient. If they wish to be referred to surgery I will refer them to the institution of their choice. In the meantime I have given them the CD of the angiogram procedure. Physical Exam Narrative: GENERAL: In general he is comfortable HEENT: Exam within normal limits. NECK: Supple without jugular vein distention. The carotid upstroke is normal without bruits. BACK: Exam normal. LUNGS: Clear. HEART: Regular rate and rhythm. ABDOMEN: Benign without organomegaly or tenderness. EXTREMITIES: No edema. The right radial artery entry site is flat, dry without anomaly at the time of discharge. NEUROLOGIC: Exam normal. SKIN: Unremarkable. 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 Routine Exams 12/22/22 07:30 Completed Laboratory Results WBC 10.94 10^3/uL (3.29-11.43) 12/22/22 07:40 RBC 4.26 10^6/uL (3.85-5.65) 12/22/22 07:40 Hgb 12.50 g/dL (11.27-16.99) 12/22/22 07:40 Hct 38.8 % (37-53) 12/22/22 07:40 MCV 91.1 fl (82-101) 12/22/22 07:40 MCH 29.3 pg (27-33) 12/22/22 07:40 MCHC 32.2 g/dL (30-55) 12/22/22 07:40 RDW 15.7 % (12.1-15.1) H 12/22/22 07:40 Plt Count 271 10^3/cmm (157-399) 12/22/22 07:40 MPV 10.5 fL (7.4-10.4) H 12/22/22 07:40 Neut % (Auto) 68.3 % 12/22/22 07:40 Lymph % (Auto) 15.1 % 12/22/22 07:40 [place] % (Auto) 11.6 % 12/22/22 07:40 Eos % (Auto) 3.7 % 12/22/22 07:40 Baso % (Auto) 0.8 % 12/22/22 07:40 Neut # (Auto) 7.47 10^3/uL (1.8-7.7) 12/22/22 07:40 Lymph # (Auto) 1.7 10^3/uL (0.8-4.8) 12/22/22 07:40 [place] # (Auto) 1.3 10^3/uL (0.2-0.9) H 12/22/22 07:40 Eos # (Auto) 0.4 10^3/uL (0.0-0.8) 12/22/22 07:40 Baso # (Auto) 0.1 10^3/uL (0.0-0.1) 12/22/22 07:40 Nucleated RBC % (auto) 0 % 12/22/22 07:40 Nucleated RBCs # 0.0 /100WBC 12/22/22 07:40 Sodium 133 mmol/L (136-145) L 12/22/22 07:40 Potassium 4.1 mmol/L (3.5-5.1) 12/22/22 07:40 Chloride 92 mmol/L (98-107) L 12/22/22 07:40 Carbon Dioxide 29 mmol/L (22-29) 12/22/22 07:40 Anion Gap 16.1 (5-19) 12/22/22 07:40 BUN 31 mg/dL (8-23) H 12/22/22 07:40 Creatinine 1.2 mg/dL (0.7-1.2) 12/22/22 07:40 GFR Calculation Not Reportable 12/22/22 07:40 Glucose 81 mg/dL (65-115) 12/22/22 07:40 Calculated Osmolality 282 mOsm/kg (285-295) L 12/22/22 07:40 Calcium 9.5 mg/dL (8.5-10.5) 12/22/22 07:40 Procedures Performed Left heart catheterization, coronary angiography, left ventriculography. Vitals Last Vital Signs Temp 97.8 F 12/22/22 07:59 Pulse 52 L 12/22/22 11:30 Resp 18 12/22/22 11:30 BP 104/62 12/22/22 11:30 Pulse Ox 96 12/22/22 11:30 O2 Del Method Room Air 12/22/22 07:58 Discharge Plan Discharge Patient Disposition: Home Prescriptions: Continued mupirocin 2 % ointment 1 applic topical BID carvedilol 12.5 mg tablet 12.5 mg PO BID Rx Instructions: must administer with a meal/food buspirone 5 mg tablet 5 mg PO BID warfarin 5 mg tablet 5 mg PO DAILY Hold Instructions: Resume on 08/02/20. atorvastatin 40 mg tablet 40 mg PO DAILY nitroglycerin 0.4 mg tablet, sublingual 0.4 mg sublingual Q5M PRN (Reason: Chest Pain) Rx Instructions: do not exceed 3 doses per episode Toujeo Max U-300 SoloStar 300 unit/mL (3 mL) insulin pen 55 unit SUBCUT DAILY furosemide 40 mg tablet 40 mg PO BID metformin 500 mg tablet 1,000 mg PO BID lisinopril 10 mg tablet 5 mg PO DAILY gabapentin 300 mg capsule 300 mg PO TID hydroxyzine HCl 25 mg tablet 25 mg PO ONCE Discharge Orders: Discharge Order (Routine); Ordered 12/22/22 Ordered By: Joe Escobar Referrals: Joe Escobar MD [Physician] - Lara Verduzco FNP [Nurse Practitioner] - 7-10 days (Check right radial artery entry site and chemistry panel. Facilitate surgery referral.) Diet: Diabetic Activity: Limit activity as instructed Activity Restrictions/Additional Instructions: No lifting over 5 pounds for 2 days with the right upper extremity. Resume warfarin tomorrow. Hold metformin for 2 days. Discharge Attestations Time Spent in Discharge Care*: greater than 30 min Quality Metrics Clinical Quality Measures [ No reported AMI, CVA or VTE this stay] Coding Level of Care Code 02179 Total time (in minutes) for Discharge: 45 Diagnoses Abnormal stress electrocardiogram test R94.39 Peripheral arterial occlusive disease I77.9 Hypertension I10 Atrial fibrillation I48.91 Diabetes mellitus E11.9 Atherosclerosis of coronary artery of [place] heart without angina pectoris I25.10 History of malignant melanoma Z85.820 Chronic anticoagulation Z79.01 Anemia D64.9
== END 2022-12-22 07:22 | disposition home or self-care (01) ==
PROVIDERS: PCP Family Medicine; Visit Provider Internal Medicine Cardiovascular Disease
DX: I25.10 Atherosclerotic heart disease of native coronary artery without angina pectoris (principal); I10 Essential (primary) hypertension; E78.5 Hyperlipidemia, unspecified; R94.39 Abnormal result of other cardiovascular function study; I77.9 Disorder of arteries and arterioles, unspecified; I48.91 Unspecified atrial fibrillation; E11.9 Type 2 diabetes mellitus without complications; Z85.820 Personal history of malignant melanoma of skin; Z79.01 Long term (current) use of anticoagulants; D64.9 Anemia, unspecified; Z79.84 Long term (current) use of oral hypoglycemic drugs; Z95.5 Presence of coronary angioplasty implant and graft; I25.2 Old myocardial infarction
CPT/HCPCS: 36415; 80048; 85025; 93458; 96361; 96365; 99152; 99153; C1769; C1887; C1894; J1644; J2250; J3010; J3490; J7030; Q0163; Q9967

== ENCOUNTER → 2022-12-29 13:52 | Outpatient (BNVA) | payer MEDICARE, SELFPAY | PROVIDERS: PCP Family Medicine; Visit Provider Nurse Practitioner Family | DX: I48.91 Unspecified atrial fibrillation (principal); I25.10 Atherosclerotic heart disease of native coronary artery without angina pectoris | CPT/HCPCS: 93005; 99214 ==

== ENCOUNTER → 2023-04-05 08:58 | Outpatient (BNVA) | payer MEDICARE, SELFPAY | PROVIDERS: PCP Family Medicine; Visit Provider Thoracic Surgery (Cardiothoracic Vascular Surgery) | DX: I96 Gangrene, not elsewhere classified (principal); L97.812 Non-pressure chronic ulcer of other part of right lower leg with fat layer exposed; L97.822 Non-pressure chronic ulcer of other part of left lower leg with fat layer exposed | CPT/HCPCS: 97597; 97598; 99213 ==

== ENCOUNTER → 2023-04-19 08:52 | Outpatient (BNVA) | payer MEDICARE, SELFPAY | PROVIDERS: PCP Family Medicine; Visit Provider Thoracic Surgery (Cardiothoracic Vascular Surgery) | DX: I73.9 Peripheral vascular disease, unspecified (principal); I87.2 Venous insufficiency (chronic) (peripheral); L97.821 Non-pressure chronic ulcer of other part of left lower leg limited to breakdown of skin; Z09 Encounter for follow-up examination after completed treatment for conditions other than malignant neoplasm | CPT/HCPCS: 97597 ==

== ENCOUNTER → 2023-12-28 11:00 | Outpatient (BNVA) | payer MEDICARE, SELFPAY | PROVIDERS: PCP Family Medicine; Visit Provider Podiatrist Foot & Ankle Surgery | DX: E11.8 Type 2 diabetes mellitus with unspecified complications (principal); I77.9 Disorder of arteries and arterioles, unspecified; L60.3 Nail dystrophy; G62.9 Polyneuropathy, unspecified; L85.3 Xerosis cutis; E11.42 Type 2 diabetes mellitus with diabetic polyneuropathy; Z79.84 Long term (current) use of oral hypoglycemic drugs; Z79.4 Long term (current) use of insulin | CPT/HCPCS: 11721; 99203 ==

== ENCOUNTER → 2024-02-29 10:12 | Outpatient (BNVA) | payer MEDICARE, SELFPAY | PROVIDERS: PCP Family Medicine; Visit Provider Podiatrist Foot & Ankle Surgery | DX: L60.3 Nail dystrophy (principal); G62.9 Polyneuropathy, unspecified; L85.3 Xerosis cutis; E11.42 Type 2 diabetes mellitus with diabetic polyneuropathy; Z79.84 Long term (current) use of oral hypoglycemic drugs; Z79.4 Long term (current) use of insulin | CPT/HCPCS: 11721 ==

== ENCOUNTER 2024-04-09 13:15 | Emergency (ER) | payer MEDICARE, SELFPAY ==
[2024-04-09] VITALS (11 sets, daily range): BP systolic 93–119; BP diastolic 45–72; PULSE 61–162; RESP 14–18; TEMP 35.9–36.7; O2SAT 96–100; BMI 29.0
--- NOTE | 2024-04-09 13:11 | XR_ITS ---
WS: [id number] XR chest 1V portable [id number] REASON FOR EXAM: syncope FINDINGS: No previous examination for comparison. Mild tortuosity and ectasia of the thoracic aorta. Cardiomegaly with multiple coronary artery stents. 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 There is moderate central pulmonary vein congestion. There are reticular interstitial lung changes and accentuation of the minor fissure of unknown chronicity. Calcified granulomatous disease in both hemithoraces. Old left pleural pericardial reactive change. No acute pulmonary parenchymal or pleural abnormality. Moderate osteoarthritis both shoulders. Moderate degenerative spondylosis in the thoracic spine. XR/XR chest 1V portable [id number] IMPRESSION: Cardiomegaly and coronary artery stents. Changes in the right lower lung field and minor fissure as above which may be c hronic however an early congestive heart failure cannot be excluded.
--- NOTE | 2024-04-09 13:18 | ECG_ITS ---
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
[2024-04-09 14:05] LABS: Basophils # 0.1 10^3/uL (0.0-0.1); Basophils % 0.6 %; Eosinophils # 0.1 10^3/uL (0.0-0.8); Eosinophils % 1.3 %; Hematocrit 23.9 % (37-53); Lymphocytes # 1.1 10^3/uL (0.8-4.8); Mean Corpuscular HGB Conc 29.7 g/dL (30-55); Mean Corpuscular Hemoglobin 25.9 pg (27-33); Mean Corpuscular Volume 87.2 fl (82-101); Mean Platelet Volume 10.3 fL (7.4-10.4); Monocytes % 9.9 %; Neutrophils # 7.38 10^3/uL (1.8-7.7); Neutrophils % 76.9 %; Nucleated Red Blood Cells % 0.2 %; Platelet Count 322 10^3/cmm (157-399); Red Blood Count 2.74 10^6/uL (3.85-5.65); Red Cell Distribution Width 16.3 % (12.1-15.1)
[2024-04-09 14:24] LABS: Alanine Aminotransferase 7 U/L (0-41); Albumin Level 3.8 g/dL (3.5-5.2); Alkaline Phosphatase 105 U/L (40-130); Anion Gap 17.6 (5-19); Aspartate Amino Transferase 11 U/L (0-40); Blood Urea Nitrogen 77 mg/dL (8-23); Calcium 9.3 mg/dL (8.5-10.5); Carbon Dioxide 25 mmol/L (22-29); Chloride 89 mmol/L (98-107); Creatinine Clr Calc Pharmacy 40.3708; Globulin 4.2 g/dL (1.3-4.6); Glucose 254 mg/dL (65-115); Osmolality Calculated 294 mOsm/kg (285-295); Potassium 5.6 mmol/L (3.5-5.1); Sodium 126 mmol/L (136-145); Total Bilirubin 0.8 mg/dL (0.15-1.2)
--- NOTE | 2024-04-09 15:02 | CTR_ITS ---
PROCEDURE INFORMATION: Exam: CT Head Without Contrast Exam date and time: 04/09/2024 4:16 PM Age: 74 years old Clinical indication: Other: Syncope TECHNIQUE: Imaging protocol: Computed tomography of the head without contrast. Radiation optimization: All CT scans at this facility use at least one of these dose optimization techniques: automated exposure control; mA and/or kV adjustment per patient size (includes targeted exams where dose is matched to clinical indication); or iterative reconstruction. COMPARISON: No relevant prior studies available. RADIATION DOSE METRICS: Total DLP (mGy-cm): 1121.78 FINDINGS: Brain: Mild areas of low-attenuation in the white matter most likely representing small vessel ischemic change. No acute infarct or intracranial hemorrhage. Cerebral ventricles: There is a dense 1 cm rounded structure in the region of the foramina Sibley near the midline and slightly to the right on series 15, image 35 most likely representing a colloid cyst. There is mild dilatation of the temporal horns. Mild cerebral atrophy. Paranasal sinuses: No significant pathology. Mastoid air cells: No significant pathology. Bones: No significant pathology. Soft tissues: Partially calcified subcutaneous structure along the left parietal scalp measuring 1.5 cm with a 2nd similar lesion in the right occipital region on series 15, image 24 likely representing benign pathology; clinical correlation recommended. CT/CT head wo con* [id number] IMPRESSION: 1. 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 Mild dilatation of the ventricular system with possible component of mild obstruction by the cyst. MRI could be performed for more detailed assessment if clinically warranted. 2. Minor findings noted above.
--- NOTE | 2024-04-09 15:07 | W.ED.SYNCOPE ---
HPI - Syncope General: Chief Complaint: Syncope Stated Complaint: syncope Time Seen by Provider: 04/09/24 14:54 Source: patient Mode of arrival: ambulatory Limitations: no limitations History of Present Illness: 74-year-old male states that over the last 3 to 4 days he has been feeling extremely weak. He states he is also had multiple syncopal events he states he believes he is passed out 4 times this week. He denies any falls or hitting his head. He states that he is worried he could be anemic he denies any chest pain denies any vomiting or diarrhea he has been having dark stools he states that he has had a GI bleed in the past had scopes at [facility] in January Associated symptoms: Deny abdominal pain, chest pain, fever(s), headache(s) or nausea Related Data Home Medications ?Medication ?Instructions ?Recorded ?Confirmed atorvastatin 40 mg tablet 40 mg PO DAILY 06/23/20 04/09/24 mupirocin 2 % topical ointment 1 applic topical BID PRN Skin 06/23/20 04/09/24 Irritation nitroglycerin 0.4 mg sublingual 0.4 mg sublingual Q5M PRN Chest 06/23/20 04/09/24 tablet Pain gabapentin 300 mg capsule 300 mg PO TID 08/09/22 04/09/24 insulin glargine U-300 conc 300 55 unit SUBCUT DAILY 09/08/22 04/09/24 unit/mL (3 mL) subcutaneous pen (Toujeo Max U-300 SoloStar) furosemide 40 mg tablet 60 mg PO BID 09/15/22 04/09/24 lisinopril 10 mg tablet 5 mg PO DAILY 11/11/22 04/09/24 ammonium lactate 12 % lotion 1 applic topical BID 04/09/24 04/09/24 cholecalciferol (vitamin D3) 125 125 mcg PO DAILY 04/09/24 04/09/24 mcg (5,000 unit) tablet (Vitamin D3) clopidogrel 75 mg tablet 75 mg PO QAM 04/09/24 04/09/24 ferrous sulfate 325 mg (65 mg 325 mg PO DAILY 04/09/24 04/09/24 iron) tablet (iron) finasteride 5 mg tablet 5 mg PO DAILY 04/09/24 04/09/24 hydrocodone 5 mg-acetaminophen 325 1 tab PO Q8H PRN Severe Pain 04/09/24 04/09/24 mg tablet (Scale Score 7-10) insulin lispro 100 unit/mL See Rx Instructions .Route .COMPLEX 04/09/24 04/09/24 subcutaneous pen (Humalog KwikPen (U-100) Insulin) metformin 1,000 mg tablet 1,000 mg PO BID 04/09/24 04/09/24 midodrine 10 mg tablet 10 mg PO Q8H 04/09/24 04/09/24 mirtazapine 15 mg tablet 15 mg PO BEDTIME 04/09/24 04/09/24 nystatin 100,000 unit/gram topical 1 applic topical BID skin rash 04/09/24 04/09/24 powder olanzapine 5 mg tablet 5 mg PO BEDTIME 04/09/24 04/09/24 ondansetron 4 mg disintegrating See Rx Instructions .Route .COMPLEX 04/09/24 04/09/24 tablet pantoprazole 40 mg tablet,delayed 40 mg PO BID 04/09/24 04/09/24 release potassium chloride 10 mEq 10 meq PO DAILY 04/09/24 04/09/24 tablet,extended release(part/cryst) spironolactone 50 mg tablet 50 mg PO DAILY 04/09/24 04/09/24 tamsulosin 0.4 mg capsule 0.4 mg PO QPM 04/09/24 04/09/24 Previous Rx's ?Medication ?Instructions ?Recorded Diabetic Shoes #1 ea 12/28/23 Allergies Allergy/AdvReac Type Severity Reaction Status Date / Time No Known Allergies Allergy Verified 04/09/24 13:24 Review of Systems Const: Reports: fatigue and malaise; Denies: fever(s), chills, body aches or change in appetite ENMT: Denies: throat pain or dental pain Card: Reports: syncope; Denies: chest pain Resp: Denies: dyspnea GI: Denies: abdominal pain, nausea, vomiting or diarrhea Musc: Denies: neck pain or back pain Skin/Breast: Denies: rash Neuro: Denies: headache(s) PFSH ED PFSH: Medical History Abnormal stress electrocardiogram test History of malignant melanoma 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, 4.6 mm Breslow thickness, Vignesh level IV Colon polyps COPD (chronic obstructive pulmonary disease) Myocardial infarct CAD (coronary artery disease) Anemia Hypertension Atrial fibrillation Hyperlipidemia Diabetes mellitus Surgical History H/O local excision of skin lesion (06/30/20) Back H/O esophagogastroduodenoscopy (06/30/20) Gastritis History of coronary artery stent placement History of appendectomy Status post colonoscopy (06/30/20) Diverticulosis, colon polyp Family History Denies family history of Anesthesia complication Bleeding disorder Social History Smoking and tobacco/nicotine status: never used tobacco/nicotine Alcohol intake: never Physical Exam Const: COMMON NORMALS: patient oriented x3 GENERAL APPEARANCE: ill appearing HENMT: COMMON NORMALS: normocephalic and atraumatic HEAD & SCALP: normocephalic and atraumatic Eye: COMMON NORMALS: Equal, round and reactive pupils present and EOMs intact bilaterally PUPIL: Yes Equal, round and reactive pupils present Neck/C-Spine: COMMON NORMALS: full ROM and supple Chest: COMMONS NORMALS: normal inspection of the chest Resp: COMMON NORMALS: normal respiratory effort, No retractions, No use of accessory muscles and clear to auscultation bilaterally AUSCULTATION: clear to auscultation bilaterally Cardio: COMMON NORMALS: regular rate, regular rhythm and No murmurs present (Cardio) RATE: regular rate RHYTHM: regular rhythm GI: COMMON NORMALS: Normal to inspection, nondistended, normoactive bowel sounds present, Soft to palpation, non-tender and no masses PALPATION: Yes Soft to palpation OTHER: tarry stools, hemocult pos Extremity: COMMON NORMALS: normal to inspection and full ROM Neuro: COMMON NORMALS: patient oriented x3, moves all extremities and no focal motor deficits Psych: COMMON NORMALS: mental status grossly normal, Normal thought process present and cooperative THOUGHT PROCESS: Normal thought process present Skin: COMMON NORMALS: no rashes or lesions noted and no wounds GENERAL SKIN EXAM: no rashes or lesions noted Course Vital Signs: Vital signs: Vital Signs Temperature 96.6 F L 04/09/24 19:10 Pulse Rate 62 04/09/24 19:10 Respiratory Rate 16 03/03/25 19:10 Blood Pressure 119/64 04/09/24 19:10 Pulse Oximetry 97 04/09/24 19:10 Oxygen Delivery Me thod Room Air 04/09/24 13:21 MDM - Syncope Medical Decision Making Patient presents here with syncopal event he is found to have an upper GI bleed he is having anemia did transfuse him patient is excepted at [facility] will transfer there for GI along with bed availability. Medical Records I reviewed the patient's medical records. Lab Data I reviewed the patient's lab results. 04/09/24 13:57 04/09/24 13:57 Radiology Impressions Chest X-Ray 04/09/24 13:11 IMPRESSION: Cardiomegaly and coronary artery stents. Changes in the right lower lung field and minor fissure as above which may be chronic however an early congestive heart failure cannot be excluded. Head CT 04/09/24 15:02 IMPRESSION: 1. 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 Mild dilatation of the ventricular system with possible component of mild obstruction by the cyst. MRI could be performed for more detailed assessment if clinically warranted. 2. Minor findings noted above. Laboratory Results WBC 9.60 10^3/uL (3.29-11.43) 04/09/24 13:57 RBC 2.74 10^6/uL (3.85-5.65) L 04/09/24 13:57 Hgb 7.10 g/dL (11.27-16.99) L 04/09/24 13:57 Hct 23.9 % (37-53) L 04/09/24 13:57 MCV 87.2 fl (82-101) 04/09/24 13:57 MCH 25.9 pg (27-33) L 04/09/24 13:57 MCHC 29.7 g/dL (30-55) L 04/09/24 13:57 RDW 16.3 % (12.1-15.1) H 04/09/24 13:57 Plt Count 322 10^3/cmm (157-399) 04/09/24 13:57 MPV 10.3 fL (7.4-10.4) 04/09/24 13:57 Neut % (Auto) 76.9 % 04/09/24 13:57 Lymph % (Auto) 11.0 % 04/09/24 13:57 [place] % (Auto) 9.9 % 04/09/24 13:57 Eos % (Auto) 1.3 % 04/09/24 13:57 Baso % (Auto) 0.6 % 04/09/24 13:57 Neut # (Auto) 7.38 10^3/uL (1.8-7.7) 04/09/24 13:57 Lymph # (Auto) 1.1 10^3/uL (0.8-4.8) 04/09/24 13:57 [place] # (Auto) 1.0 10^3/uL (0.2-0.9) H 04/09/24 13:57 Eos # (Auto) 0.1 10^3/uL (0.0-0.8) 04/09/24 13:57 Baso # (Auto) 0.1 10^3/uL (0.0-0.1) 04/09/24 13:57 Nucleated RBC % (auto) 0.2 % 04/09/24 13:57 Nucleated RBCs # 0.0 /100WBC 04/09/24 13:57 PT 14.10 SECONDS (12.1-14.9) 04/09/24 13:57 INR 1.02 (0.8-1.2) 04/09/24 13:57 Sodium 126 mmol/L (136-145) L 04/09/24 13:57 Potassium 5.6 mmol/L (3.5-5.1) H 04/09/24 13:57 Chloride 89 mmol/L (98-107) L 04/09/24 13:57 Carbon Dioxide 25 mmol/L (22-29) 04/09/24 13:57 Anion Gap 17.6 (5-19) 04/09/24 13:57 BUN 77 mg/dL (8-23) H 04/09/24 13:57 Creatinine 1.8 mg/dL (0.7-1.2) H 04/09/24 13:57 GFR Calculation Not Reportable 04/09/24 13:57 Glucose 254 mg/dL (65-115) H 04/09/24 13:57 Calculated Osmolality 294 mOsm/kg (285-295) 04/09/24 13:57 Calcium 9.3 mg/dL (8.5-10.5) 04/09/24 13:57 Total Bilirubin 0.8 mg/dL (0.15-1.2) 04/09/24 13:57 AST 11 U/L (0-40) 04/09/24 13:57 ALT 7 U/L (0-41) 04/09/24 13:57 Alkaline Phosphatase 105 U/L (40-130) 04/09/24 13:57 Troponin T Baseline 40 ng/L (0-15) H 04/09/24 13:57 Troponin T 120 Minute 39.55 ng/L (0-15) H 04/09/24 15:35 Delta Troponin T -0.45 ABS# (0-10) L 04/09/24 15:35 Total Protein 8.0 g/dL (6.6-8.7) 04/09/24 13:57 Albumin 3.8 g/dL (3.5-5.2) 04/09/24 13:57 Globulin 4.2 g/dL (1.3-4.6) 04/09/24 13:57 Blood Type A Negative 04/09/24 15:35 Rho(D) Type Rh negative 04/09/24 15:35 Antibody Screen Negative 04/09/24 15:35 Crossmatch See Detail 04/09/24 15:35 All radiology interpretation(s) finalized by discharge Critical Care Time Critical Care Time: Critical Care Time: Yes Total Critical Care Time: 40 Attestation: The high probability of a clinically significant, sudden or life threatening deterioration of the patient's gi system(s) required my full and direct attention, intervention and personal management. The critical care time is as shown. This time is in addition to time spent performing any reported procedures but includes the following: [x] Data and vital sign review and interpretation [x] Patient assessment, examination and intervention [x] Documentation [x] Medication orders and management Discharge Plan Discharge Patient Disposition: Xfer Short-Term Hosp Clinical Impression: Acute upper GI bleed, Anemia, Syncope Condition: Stable Prescriptions: No Action mupirocin 2 % ointment 1 applic topical BID PRN (Reason: Skin Irritation) atorvastatin 40 mg tablet 40 mg PO DAILY nitroglycerin 0.4 mg tablet, sublingual 0.4 mg sublingual Q5M PRN (Reason: Chest Pain) Rx Instructions: do not exceed 3 doses per episode Toujeo Max U-300 SoloStar 300 unit/mL (3 mL) insulin pen 55 unit SUBCUT DAILY furosemide 40 mg tablet 60 mg PO BID lisinopril 10 mg tablet 5 mg PO DAILY gabapentin 300 mg capsule 300 mg PO TID (DME) Diabetic Shoes See Rx Instructions .Route .MEDSUPPLY Qty: 1 0RF Rx Instructions: As directed b3 x insoles ( [employer] [place] ) insulin lispro [Humalog KwikPen Insulin] 100 unit/mL insulin pen See Rx Instructions .ROUTE .COMPLEX Rx Instructions: Take 0 to 18 unit subcutaneously four times daily with meals and bedtime per sliding scale: greater [id number]=2 units 181-200=3 units 201-250=6 units 251-300=9 units 301-350=12 units 351-400=15 units 401 or greater=18 units Contact physician if greater than 250 or 180 for 2 consecutive readings max 72 units daily. metformin 1,000 mg tablet 1,000 mg PO BID ammonium lactate 12 % lotion 1 applic topical BID ferrous sulfate [iron] 325 mg (65 mg iron) Tablet 325 mg PO DAILY cholecalciferol (vitamin D3) [Vitamin D3] 125 mcg (5,000 unit) Tablet 125 mcg PO DAILY hydrocodone-acetaminophen 5-325 mg tablet 1 tab PO Q8H MDD tid PRN (Reason: Severe Pain (Scale Score 7-10)) olanzapine 5 mg tablet 5 mg PO BEDTIME clopidogrel 75 mg tablet 75 mg PO QAM tamsulosin 0.4 mg capsule 0.4 mg PO QPM pantoprazole 40 mg tablet,delayed release (DR/EC) 40 mg PO BID mirtazapine 15 mg tablet 15 mg PO BEDTIME nystatin 100,000 unit/gram powder 1 applic TOPICAL BID ondansetron 4 mg tablet,disintegrating See Rx Instructions .ROUTE .COMPLEX Rx Instructions: DISSOLVE 1 TABLET ON TONGUE AND SWALLOW WITH SALIVA EVERY 8 HOURS NEEDED FOR NAUSEA AND VOMITING. finasteride 5 mg tablet 5 mg PO DAILY spironolactone 50 mg tablet 50 mg PO DAILY midodrine 10 mg tablet 10 mg PO Q8H potassium chloride 10 mEq tablet,ER particles/crystals 10 meq PO DAILY Referrals: Ang Joy [Primary Care Provider] - Print Language: Gibraltarian Coding Level of Care Code ED Lead Mechanical Engineer for Benitag Fwolivia
[2024-04-09 15:30] LABS: Troponin(5th) Baseline 40 ng/L (0-15)
[2024-04-09] MEDS: sodium chloride 0.9% 1,000 ML 999 ML IV ×2 (15:35→21:19)
[2024-04-09] MEDS: pantoprazole 40 mg SDV 80 MG IVP (15:35)
[2024-04-09 15:36] LABS: INR 1.02 (0.8-1.2)
--- NOTE | 2024-04-09 16:07 | PC.NURSE ---
Assumed care of patient from Jennifer POWERS at 1550. Rounding with patient and insertion of 2nd iv line per Santino Ronnell.
[2024-04-09 16:42] LABS: Troponin 5 2HR 39.55 ng/L (0-15)
[2024-04-09 16:43] LABS: Troponin 5 2HR Delta -0.45 ABS# (0-10)
--- NOTE | 2024-04-09 16:55 | ECG_ITS ---
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
[2024-04-09] MEDS: sodium chloride 0.9% 100 mL Bag 50 ML IV ×2 (17:39→21:22)
--- NOTE | 2024-04-09 21:30 | PC.NURSE ---
Patient hand off to Jennifer POWERS @ 8146. Report called to Anupam prior to transfer. Pt has blood transfusion going at this time.
== END 2024-04-09 22:13 | disposition short-term general hospital (02) ==
PROVIDERS: Emergency Provider Emergency Medicine; PCP Family Medicine
DX: K92.2 Gastrointestinal hemorrhage, unspecified (principal); D64.9 Anemia, unspecified; R55 Syncope and collapse; Z79.4 Long term (current) use of insulin; Z79.84 Long term (current) use of oral hypoglycemic drugs; J44.9 Chronic obstructive pulmonary disease, unspecified; I25.10 Atherosclerotic heart disease of native coronary artery without angina pectoris; I10 Essential (primary) hypertension; E78.5 Hyperlipidemia, unspecified; E11.9 Type 2 diabetes mellitus without complications
CPT/HCPCS: 36415; 36430; 70450; 71045; 80053; 84484; 85025; 85610; 86850; 86900; 86920; 93005; 96361; 96374; 99285; J2470; J7030; P9016

== ENCOUNTER 2024-04-19 15:31 | Outpatient (CLI) | payer MEDICARE, SELFPAY ==
[2024-04-19 15:39] LABS: Basophils # 0.1 10^3/uL (0.0-0.1); Eosinophils # 0.5 10^3/uL (0.0-0.8); Eosinophils % 6.2 %; Hematocrit 29.6 % (37-53); Lymphocytes # 1.3 10^3/uL (0.8-4.8); Lymphocytes % 16.1 %; Mean Corpuscular HGB Conc 29.1 g/dL (30-55); Mean Corpuscular Hemoglobin 25.7 pg (27-33); Mean Corpuscular Volume 88.6 fl (82-101); Mean Platelet Volume 10.5 fL (7.4-10.4); Monocytes # 0.9 10^3/uL (0.2-0.9); Monocytes % 10.8 %; Neutrophils # 5.47 10^3/uL (1.8-7.7); Neutrophils % 65.5 %; Nucleated Red Blood Cells % 0 %; Platelet Count 262 10^3/cmm (157-399); Red Blood Count 3.34 10^6/uL (3.85-5.65); Red Cell Distribution Width 17.2 % (12.1-15.1); White Blood Count 8.34 10^3/uL (3.29-11.43)
== END 2024-04-19 15:32 | disposition home or self-care (01) ==
LOC: LAB 15:33
PROVIDERS: PCP Family Medicine; Visit Provider Family Medicine
DX: K31.811 Angiodysplasia of stomach and duodenum with bleeding (principal); K92.1 Melena
CPT/HCPCS: 85025

== ENCOUNTER 2024-07-16 09:08 | Oncology outpatient (recurring) (ONCR) | payer MEDICARE, SELFPAY ==
[2024-07-10 14:55] LABS: Basophils # 0.1 10^3/uL (0.0-0.1); Basophils % 0.7 %; Eosinophils # 0.2 10^3/uL (0.0-0.8); Eosinophils % 2.6 %; Hematocrit 33.6 % (37-53); Lymphocytes # 1.1 10^3/uL (0.8-4.8); Lymphocytes % 12.4 %; Mean Corpuscular HGB Conc 30.4 g/dL (30-55); Mean Corpuscular Hemoglobin 28.7 pg (27-33); Mean Corpuscular Volume 94.6 fl (82-101); Mean Platelet Volume 9.7 fL (7.4-10.4); Monocytes # 0.8 10^3/uL (0.2-0.9); Monocytes % 9.2 %; Neutrophils # 6.41 10^3/uL (1.8-7.7); Neutrophils % 74.5 %; Nucleated Red Blood Cells % 0 %; Platelet Count 270 10^3/cmm (157-399); Red Blood Count 3.55 10^6/uL (3.85-5.65); Red Cell Distribution Width 21.1 % (12.1-15.1)
[2024-07-10 15:14] LABS: Alanine Aminotransferase 11 U/L (0-41); Albumin Level 3.8 g/dL (3.5-5.2); Alkaline Phosphatase 136 U/L (40-130); Anion Gap 17.1 (5-19); Aspartate Amino Transferase 13 U/L (0-40); Blood Urea Nitrogen 42 mg/dL (8-23); Calcium 9.1 mg/dL (8.5-10.5); Carbon Dioxide 23 mmol/L (22-29); Chloride 97 mmol/L (98-107); Ferritin 86 ng/mL (30-400); Globulin 3.9 g/dL (1.3-4.6); Glucose 302 mg/dL (65-115); Iron 40 ug/dL (59-158); Osmolality Calculated 296 mOsm/kg (285-295); Percent Saturation 12.9 % (20-50); Potassium 5.1 mmol/L (3.5-5.1); Sodium 132 mmol/L (136-145); Total Bilirubin 0.5 mg/dL (0.15-1.2); Total Iron Binding Capacity 310 mcg/dl; Total Protein 7.7 g/dL (6.6-8.7); Unsaturated Iron Binding 270 ug/dL (112-347)
[2024-07-16 09:40] VITALS: BP 109/61; PULSE 73; RESP 17; TEMP 36.6; O2SAT 93
[2024-07-16] MEDS: sodium chloride 0.9% 500 ML 75 ML IV (10:07)
[2024-07-16] MEDS: acetaminophen 325 mg Tablet 650 MG PO (10:07)
[2024-07-16] MEDS: diphenhydrAMINE 50 mg/mL SDV 1mL 25 MG IVP (10:07)
[2024-07-16] MEDS: iron dextran 25 MG in SYRINGE 1 EACH 30 MG IVP (10:57)
[2024-07-16] MEDS: iron dextran 1,000 MG in sodium chloride 0.9% 1,000 ML 250.75 MG IV (12:14)
[2024-07-16 16:42] VITALS: BP 128/65; PULSE 57; RESP 16; TEMP 36; O2SAT 96
== END 2024-08-06 23:59 | disposition home or self-care (01) ==
PROVIDERS: PCP Family Medicine; Visit Provider Internal Medicine Medical Oncology
DX: Z53.9 Procedure and treatment not carried out, unspecified reason; D50.9 Iron deficiency anemia, unspecified; Z79.899 Other long term (current) drug therapy
CPT/HCPCS: 36415; 80053; 82728; 83540; 83550; 85025; 96365; 96366; 96375; 99205; J1200; J1750; J7030; J7040; J9999

== ENCOUNTER 2024-08-27 10:20 | Oncology outpatient (recurring) (ONCR) | payer MEDICARE, SELFPAY ==
[2024-08-27 11:09] LABS: Hematocrit 39.4 % (37-53); Hemoglobin 12.80 g/dL (11.27-16.99); Mean Corpuscular HGB Conc 32.5 g/dL (30-55); Mean Corpuscular Hemoglobin 31.1 pg (27-33); Mean Corpuscular Volume 95.6 fl (82-101); Nucleated Red Blood Cells % 0 %; Platelet Count 209 10^3/cmm (157-399); Red Blood Count 4.12 10^6/uL (3.85-5.65); White Blood Count 9.20 10^3/uL (3.29-11.43)
[2024-08-27 11:36] LABS: Alanine Aminotransferase 11 U/L (0-41); Albumin Level 3.7 g/dL (3.5-5.2); Alkaline Phosphatase 118 U/L (40-130); Anion Gap 18.9 (5-19); Aspartate Amino Transferase 15 U/L (0-40); Blood Urea Nitrogen 35 mg/dL (8-23); Calcium 8.9 mg/dL (8.5-10.5); Carbon Dioxide 24 mmol/L (22-29); Chloride 100 mmol/L (98-107); Creatinine Clr Calc Pharmacy 55.6922; Ferritin 411 ng/mL (30-400); Globulin 3.9 g/dL (1.3-4.6); Glucose 88 mg/dL (65-115); Iron 88 ug/dL (59-158); Osmolality Calculated 293 mOsm/kg (285-295); Potassium 4.9 mmol/L (3.5-5.1); Sodium 138 mmol/L (136-145); Total Iron Binding Capacity 208 mcg/dl; Total Protein 7.6 g/dL (6.6-8.7); Unsaturated Iron Binding 120 ug/dL (112-347)
== END 2024-09-06 23:59 | disposition home or self-care (01) ==
PROVIDERS: PCP Family Medicine; Visit Provider Internal Medicine Medical Oncology
DX: D50.9 Iron deficiency anemia, unspecified (principal); E11.9 Type 2 diabetes mellitus without complications; Z79.899 Other long term (current) drug therapy
CPT/HCPCS: 36415; 80053; 82728; 83540; 83550; 85025; 99213

== ENCOUNTER 2024-10-30 11:24 | Oncology outpatient (recurring) (ONCR) | payer MEDICARE, SELFPAY ==
[2024-10-30 12:11] LABS: Hematocrit 38.8 % (37-53); Hemoglobin 12.90 g/dL (11.27-16.99); Mean Corpuscular HGB Conc 33.2 g/dL (30-55); Mean Corpuscular Hemoglobin 31.9 pg (27-33); Mean Corpuscular Volume 95.8 fl (82-101); Nucleated Red Blood Cells % 0 %; Platelet Count 206 10^3/cmm (157-399); Red Blood Count 4.05 10^6/uL (3.85-5.65); White Blood Count 9.11 10^3/uL (3.29-11.43)
[2024-10-30 12:32] LABS: Alanine Aminotransferase 11 U/L (0-41); Albumin Level 3.7 g/dL (3.5-5.2); Alkaline Phosphatase 105 U/L (40-130); Aspartate Amino Transferase 13 U/L (0-40); Blood Urea Nitrogen 46 mg/dL (8-23); Calcium 9.1 mg/dL (8.5-10.5); Carbon Dioxide 24 mmol/L (22-29); Chloride 98 mmol/L (98-107); Creatinine Clr Calc Pharmacy 52.3523; Ferritin 394 ng/mL (30-400); Globulin 4.0 g/dL (1.3-4.6); Glucose 277 mg/dL (65-115); Iron 96 ug/dL (59-158); Osmolality Calculated 302 mOsm/kg (285-295); Sodium 135 mmol/L (136-145); Total Iron Binding Capacity 232 mcg/dl; Total Protein 7.7 g/dL (6.6-8.7); Unsaturated Iron Binding 136 ug/dL (112-347)
[2024-10-30 12:34] LABS: Anion Gap 18.0 (5-19); Potassium 5.0 mmol/L (3.5-5.1)
== END 2024-11-06 23:59 | disposition home or self-care (01) ==
PROVIDERS: PCP Family Medicine; Visit Provider Internal Medicine Medical Oncology
DX: D50.9 Iron deficiency anemia, unspecified (principal); E87.8 Other disorders of electrolyte and fluid balance, not elsewhere classified; Z79.01 Long term (current) use of anticoagulants; Z79.899 Other long term (current) drug therapy
CPT/HCPCS: 36415; 80053; 82728; 83540; 83550; 85025; 99214

== ENCOUNTER 2025-01-29 12:30 | Outpatient (CLI) | payer MEDICARE, SELFPAY | END 2025-01-29 12:31 | disposition home or self-care (01) | LOC: RAD 02-09 06:37 | PROVIDERS: PCP Family Medicine; Visit Provider Internal Medicine Medical Oncology | DX: D50.9 Iron deficiency anemia, unspecified (principal); E87.8 Other disorders of electrolyte and fluid balance, not elsewhere classified; Z79.01 Long term (current) use of anticoagulants; Z79.899 Other long term (current) drug therapy; E11.8 Type 2 diabetes mellitus with unspecified complications; L60.3 Nail dystrophy; E11.42 Type 2 diabetes mellitus with diabetic polyneuropathy; G62.9 Polyneuropathy, unspecified; L85.3 Xerosis cutis; Z79.4 Long term (current) use of insulin; Z79.84 Long term (current) use of oral hypoglycemic drugs | CPT/HCPCS: 11721 ==